=== PATIENT | male | born 1950 | race Caucasian/White ===

== ENCOUNTER 2019-10-30 14:16 | Outpatient (CLI) | payer OTHER, SELFPAY ==
--- NOTE | 2019-10-30 14:27 | MR_ITS ---
WS: [id number] MRI LEFT SHOULDER NONCONTRAST TECHNIQUE: Sagittal T2, coronal T1, T2 and proton density imaging. Axial gradient PDE imaging. CLINICAL INFORMATION: STRAIN OF LEFT SHOULDER, INITIAL ENCOUNTER COMPARISON: None. 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 Subacromial sp urring. Moderate edema at the AC joint. Partial intrasubstance tear involving the supraspinatus at th e musculotendinous junction with T2 hyperintensity. Additional small insertional tear of the supraspi natus insertion. Infraspinatus is intact. Normal teres minor. Partial intrasubstance tear with diffuse edema involving the subscapularis tendon. Normal biceps tend on in the bicipital groove. Biceps labral anchor appears intact. Small joint effusion. Small SLAP tea r involving the anterior superior glenoid labrum. MR/MR shoulder LT wo con* [id number] IMPRESSION: 1. Partial intrasubstance tear involving the supraspinatus at the muscular ten dinous junction with small insertional tear distally. 2. Partial intrasubstance Tear with edema involving the subscapularis. 3. Suggestion of a small SLAP tear involving the anterosuperior glenoid labrum . 4. Shoulder joint effusion with edema involving the rotator cuff. 5. Moderate degenerative arthritis at the AC joint
== END 2019-10-30 14:17 | disposition home or self-care (01) ==
LOC: RADWPI 14:21
PROVIDERS: Family Provider Internal Medicine; PCP Internal Medicine; Visit Provider Orthopaedic Surgery
DX: S46.912A Strain of unspecified muscle, fascia and tendon at shoulder and upper arm level, left arm, initial encounter (principal); M75.112 Incomplete rotator cuff tear or rupture of left shoulder, not specified as traumatic; M25.412 Effusion, left shoulder; M19.012 Primary osteoarthritis, left shoulder; X58.XXXA Exposure to other specified factors, initial encounter
CPT/HCPCS: 73221

== ENCOUNTER 2019-11-12 06:00 | Outpatient (RCR) | payer OTHER, SELFPAY | END 2019-11-27 23:59 | disposition home or self-care (01) | LOC: APT 06:00 | PROVIDERS: Family Provider Internal Medicine; PCP Internal Medicine; Referring Provider Orthopaedic Surgery; Visit Provider Orthopaedic Surgery | DX: M67.814 Other specified disorders of tendon, left shoulder (principal) | CPT/HCPCS: 97110; 97161 ==

== ENCOUNTER 2019-11-25 12:15 | Outpatient (CLI) | payer OTHER, SELFPAY ==
--- NOTE | 2019-11-25 16:36 | ONCRAD EPV_ITS ---
Radiation Oncology Established Patient Visit Patient: Avtar MR#: [id number] : 1950> Age: 69> Sex: Male> Dictated by: Dr. Chavo Costa Date of Service: 11/25/2019 Referring Physician(s) : Dr. Darrell Frank Diagnosis: C61 - Malignant neoplasm of prostate, Diagnosed 09/12/2018 (Active) Stage X, T2a, N0, M0 Radiotherapy to Date: Course: Prostate Treatment Site: [id number] Ref. ID: [id number] Energy: 6X Dose/Fx (cGy): 200 #Fx: 27 / 27 Dose Correction (cGy): 0 Total Dose (cGy): 5,400 Start Date: 12/01/2018 End Date: 01/12/2019 Elapsed Days: 42 Course: Prostate Treatment Site: PTV80 Ref. ID: [id number] Energy: 6X Dose/Fx (cGy): 200 #Fx: 13 / 13 Dose Correction (cGy): 0 Total Dose (cGy): 2,600 Start Date: 01/13/2019 End Date: 01/29/2019 Elapsed Days: 16 Chief Complaint / History of Present Illness: The patient is a 68 year old gentleman with a recently diagnosed T2a, Nx, Mx adenocarcinoma of the prostate Jhonathan score 3+4, PSA 7.4, favorable intermediate risk disease. He is s/p definitive RT to 80Gy completed on 01/29/2018. The patient is doing well with no complaints. Specifically he denies dysuria, urinary urgency, frequency, incontinence, nocturia or hematuria. He denies diarrhea, rectal irritation or bleeding. His most recent PSA was 1.31 on 06/04/2019 and 1.09 on 11/17/2019. Current Medications: Allopurinol, amiodarone HCl, cholecalciferol, cyclobenzaprine HCl, cymbalta, dilTIAZem HCl, flomax, lisinopril, melatonin, oxycodone-Acetaminophen, pregabalin, rOPINIRole HCl, sulfaSALAzine, xarelto. Allergies: Beta Adrenergic Blockers and Pravastatin Sodium. Current Complaints / Review of Systems: Constitutional - Complains of moderate fatigue. Denies lack of appetite, fever, night sweats and change in weight. Eyes - Complains of blurred vision in both eyes. ENMT - Complains of mouth dryness related to medications and tinnitus occasionally. Denies dysphagia, ear pain, stomatitis and altered taste. Neck - Complains of neck pain. Integumentary - Denies rash. Cardiovascular - Complains of infrequent arrhythmias which he has A-Flb. Denies chest pain. Respiratory - Complains of wheezing occasionally. Denies cough and dyspnea. Gastrointestinal - Denies abdominal pain, constipation, diarrhea, heartburn / dyspepsia, hemorrhoids, melena / GI bleeding, nausea and vomiting. Genitourinary (M) - Complains of nocturia gets up about 1 to 2 times per night. Denies dysuria, frequency and urgency. Musculoskeletal - Complains of arthritis which he was diagnosed about 6 months ago with Rheumatoid. Complains of bone pain. Complains of joint pain knees. Complains of generalized muscle weakness. Neurologic - Complains of frequent dizziness which happens with turning too quickly. Denies headaches. Endocrine - Denies diabetes and thyroid disease. Hematologic/Lymphatic - Denies tender or enlarged lymph nodes.. Vital Signs: Performed on 11/25/2019 1:18 PM BMI - 21.917 kg/m2, Height - 72.00 in, Weight - 161.6 lbs, Temperature - 97.1 f, Pulse - 85, Respiration - 18, O2 Sat - 96 %, Pain - 7 and BP - 150/ 73 mm(hg)(high/). Physical Exam: General: Alert and oriented x 3. No acute distress. HEENT: Normocephalic, atraumatic. Extraocular Movements Intact: Pupils Equal, Round, Reactive to Light and Accommodation: Sclerae anicteric. Oral cavity is clear without lesions, masses or ulcers. NECK: Supple without supraclavicular or jugular lymphadenopathy. LUNGS: Clear to auscultation bilaterally without rales, rhonchi or wheeze. HEART: Regular rate and rhythm, normal S1 and S2 without murmur, gallop or rub. BREASTS: There is no mass/nodule palpated of the right breast. No skin change, nipple discharge or retraction. The surgical incision has healed up well with no signs of bleeding or infection. No enlarged lymph nodes in the axilla. Exam of the contralateral breast is unremarkable. MUSCULOSKELETAL: No tenderness or percussion pain over the axial skeleton, scapulae or pelvis. ABDOMEN: Soft, nontender, nondistended without masses or organomegaly. Bowell sounds are present. EXTREMITIES: No peripheral edema is identified. Limited motor and sensory examination are grossly intact and symmetric bilaterally. NEUROLOGIC: Cranial nerves II ???XII are grossly intact. Normal sensation, strength 5/5 in all extremities, normal gait, no ataxia. Performance Status: 1 - No physically strenuous activity, but ambulatory and able to carry out light or sedentary work (e.g. office work, light house work). (ECOG) Lab: None pending. Pathology: Primary, c61 - malignant neoplasm of prostate, Diagnosed 09/12/2018 (active) stage x, t2a, n0, m0. Imaging: See HPI Impression/plan: There is no clinical evidence of recurrent prostate cancer or late radiation toxicities. We will check his PSA in 4 months. He will follow up with us afterwards. Signed by: 11/25/2019 4:35:41 PM <<Signature on File>> CPT Code: CPT Code: Signed By: Dr. Chavo Costa, 11/25/2019 4:35:42 PM <<Signature on File>>
== END 2019-11-25 12:16 | disposition home or self-care (01) ==
LOC: ONCMED 12:18
PROVIDERS: Family Provider Internal Medicine; PCP Internal Medicine; Visit Provider Radiology Radiation Oncology
DX: C61 Malignant neoplasm of prostate (principal); M06.9 Rheumatoid arthritis, unspecified; Z92.3 Personal history of irradiation; Z79.891 Long term (current) use of opiate analgesic
CPT/HCPCS: 99213

== ENCOUNTER 2019-11-28 06:00 | Outpatient (RCR) | payer OTHER, SELFPAY | END 2019-12-26 23:59 | disposition home or self-care (01) | LOC: APT 06:00 | PROVIDERS: Family Provider Internal Medicine; PCP Internal Medicine; Referring Provider Orthopaedic Surgery; Visit Provider Orthopaedic Surgery | DX: M77.9 Enthesopathy, unspecified (principal) | CPT/HCPCS: 97110; 97530 ==

== ENCOUNTER → 2020-01-14 10:42 | Outpatient (BNVA) | payer OTHER, SELFPAY | PROVIDERS: Family Provider Internal Medicine; PCP Internal Medicine; Visit Provider Internal Medicine Rheumatology | DX: M06.09 Rheumatoid arthritis without rheumatoid factor, multiple sites (principal); Z79.899 Other long term (current) drug therapy | CPT/HCPCS: 36415; 80076; 82565; 85651; 86140 ==

== ENCOUNTER → 2020-01-14 10:50 | Outpatient (BNVA) | payer OTHER, SELFPAY | PROVIDERS: Family Provider Internal Medicine; PCP Internal Medicine; Visit Provider Internal Medicine Rheumatology | DX: M06.09 Rheumatoid arthritis without rheumatoid factor, multiple sites (principal); Z79.899 Other long term (current) drug therapy | CPT/HCPCS: 85025 ==

== ENCOUNTER → 2020-03-23 08:36 | Outpatient (BNVA) | payer MEDICARE, OTHER, SELFPAY | PROVIDERS: Family Provider Internal Medicine; PCP Internal Medicine; Visit Provider Urology | DX: R31.21 Asymptomatic microscopic hematuria (principal); C61 Malignant neoplasm of prostate | CPT/HCPCS: 81001 ==

== ENCOUNTER 2020-06-17 08:07 | Outpatient (CLI) | payer OTHER, SELFPAY ==
--- NOTE | 2020-06-17 08:39 | USCV_ITS ---
Patrick Mendes Age: 70 Gender: M : 1950 Exam Date: 06/17/2020 08:33 Ordering Phys: Moiz Carrillo M.D ([email or web address]) Technologist: Julissa Hernandez Exam Location: [facility] [place] Indication: CAROTID STENOSIS Risk Factors: Previous Vascular Surgery: None Right Brachial BP: / Left Brachial BP: / Right Left Velocity (cm/s) Spectral Plaque Velocity (cm/s) Spectral Plaque Syst/Diast Broadening Syst/Diast Broadening 49.90/ 14.30 Prox CCA 53.90 / 12.50 49.20/ 13.50 Mid CCA 53.90 / 14.40 44.70/ 12.70 Distal CCA 53.30 / 13.10 73.35/ 28.75 Prox ICA 38.20 / 16.20 73.90/ 26.30 Mid ICA 55.20 / 16.50 36.10/ 16.40 Distal ICA 73.30 / 30.60 47.70 ECA 38.50 1.50 ICA/CCA 1.36 Antegrade Vertebral Antegrade 42.40/ 13.00 cm/s 37.70/ 11.90 cm/s Tri Subclavian Tri 123.0 87.70 0 FINDINGS Comparison:. /04/15. No significant elevation of systolic or diastolic velocities. Mild turbulence with scattered calcified plaque, bilateral. No progression of stenosis . CONCLUSIONS Bilateral ICA stenosis less than 50%. No interval change in stenosis since prior exam. Dr. Lauryn Reyes DO (Electronically Signed) Final Date: 17 June 2020 13:10 S
--- NOTE | 2020-06-17 08:39 | USCV_ITS ---
Patrick Mendes Age: 70 Gender: M : 1950 Exam Date: 06/17/2020 08:57 Ordering Phys: Moiz Carrillo M.D ([email or web address]) Technologist: Julissa Hernandez [place] [facility] [place]: AAA HISTORY: Diameter (cm) AP x Transverse x Length Velocity (cm/s) Waveform Prox Aorta: 2.16 x 2.26 x 29.50 Triphasic Mid Aorta: 2.03 x 2.49 x 29.50 Triphasic Distal Aorta: 3.45 x 3.77 x 19.60 Triphasic Right Iliac Prox: 0.98 x 1.01 x 89.50 Triphasic Left Iliac Prox: 1.31 x 1.24 x 101.80 Triphasic Stent Prox Landing x x Aneurysmal Sac Max x x Lt Lat Sac Dim Rt Lat Sac Dim Stent Dist Landing x x Right Iliac Stent x x Left Iliac Stent x x Right Renal Art Left Renal Art FINDINGS: Comparison:. 01/06/19. The abdominal aortic aneurysm involves the infrarenal aorta. Maximum diameter of 3.8cm, increased from 3.2 cm on 01/06/19. Normal waveforms and mild atherosclerosis iliac arteries. CONCLUSIONS AAA with maximum diameter of 3.8 cm. Mild increase in size from3.[address] Lauryn Reyes DO (Electronically Signed) Final Date: 17 June 2020 13:06 S
== END 2020-06-17 08:08 | disposition home or self-care (01) ==
LOC: RAD 08:08
PROVIDERS: PCP Internal Medicine; Visit Provider Internal Medicine Cardiovascular Disease
DX: I71.4 Abdominal aortic aneurysm, without rupture (principal); I65.23 Occlusion and stenosis of bilateral carotid arteries
CPT/HCPCS: 76706; 93880

== ENCOUNTER → 2020-09-06 08:43 | Outpatient (BNVA) | payer OTHER, SELFPAY | PROVIDERS: PCP Family Medicine; Referring Provider Family Medicine; Visit Provider Anesthesiology Pain Medicine | DX: Z79.899 Other long term (current) drug therapy (principal); M47.816 Spondylosis without myelopathy or radiculopathy, lumbar region; M54.16 Radiculopathy, lumbar region; M96.1 Postlaminectomy syndrome, not elsewhere classified; M54.9 Dorsalgia, unspecified; F17.210 Nicotine dependence, cigarettes, uncomplicated; Z79.891 Long term (current) use of opiate analgesic | CPT/HCPCS: 36415; 80076; 82565; 85025; 85651; 86140; 99205 ==

== ENCOUNTER → 2020-09-13 14:39 | Outpatient (BNVA) | payer OTHER, SELFPAY | PROVIDERS: PCP Family Medicine; Visit Provider Internal Medicine Rheumatology | DX: M05.79 Rheumatoid arthritis with rheumatoid factor of multiple sites without organ or systems involvement (principal); R76.8 Other specified abnormal immunological findings in serum; Z79.899 Other long term (current) drug therapy; Z79.52 Long term (current) use of systemic steroids; C61 Malignant neoplasm of prostate; I48.91 Unspecified atrial fibrillation; Z79.01 Long term (current) use of anticoagulants; F17.210 Nicotine dependence, cigarettes, uncomplicated | CPT/HCPCS: 99214 ==

== ENCOUNTER → 2020-10-04 08:57 | Outpatient (BNVA) | payer OTHER, SELFPAY | PROVIDERS: PCP Family Medicine; Visit Provider Anesthesiology Pain Medicine | DX: M54.9 Dorsalgia, unspecified (principal); M96.1 Postlaminectomy syndrome, not elsewhere classified; M54.16 Radiculopathy, lumbar region; M47.816 Spondylosis without myelopathy or radiculopathy, lumbar region | CPT/HCPCS: 99214 ==

== ENCOUNTER → 2020-11-01 08:42 | Outpatient (BNVA) | payer OTHER, SELFPAY | PROVIDERS: PCP Family Medicine; Visit Provider Anesthesiology Pain Medicine | DX: M47.816 Spondylosis without myelopathy or radiculopathy, lumbar region (principal); M54.16 Radiculopathy, lumbar region; M96.1 Postlaminectomy syndrome, not elsewhere classified; M54.9 Dorsalgia, unspecified; I48.91 Unspecified atrial fibrillation; Z79.891 Long term (current) use of opiate analgesic | CPT/HCPCS: 99213; 99214 ==

== ENCOUNTER → 2020-11-29 09:08 | Outpatient (BNVA) | payer OTHER, SELFPAY | PROVIDERS: PCP Family Medicine; Visit Provider Anesthesiology Pain Medicine | DX: M47.816 Spondylosis without myelopathy or radiculopathy, lumbar region (principal); M54.16 Radiculopathy, lumbar region; M96.1 Postlaminectomy syndrome, not elsewhere classified; M54.9 Dorsalgia, unspecified; F17.210 Nicotine dependence, cigarettes, uncomplicated; Z79.891 Long term (current) use of opiate analgesic | CPT/HCPCS: 99214 ==

== ENCOUNTER → 2020-12-26 12:43 | Outpatient (BNVA) | payer OTHER, SELFPAY | PROVIDERS: PCP Family Medicine; Visit Provider Anesthesiology Pain Medicine | DX: M53.3 Sacrococcygeal disorders, not elsewhere classified (principal); M47.816 Spondylosis without myelopathy or radiculopathy, lumbar region; M54.9 Dorsalgia, unspecified; F17.210 Nicotine dependence, cigarettes, uncomplicated; Z79.891 Long term (current) use of opiate analgesic | CPT/HCPCS: 77003; G0260; J1030; J3490 ==

== ENCOUNTER → 2021-01-05 10:14 | Outpatient (BNVA) | payer OTHER, SELFPAY | PROVIDERS: PCP Family Medicine; Visit Provider Anesthesiology Pain Medicine | DX: M54.16 Radiculopathy, lumbar region (principal); M96.1 Postlaminectomy syndrome, not elsewhere classified; M54.9 Dorsalgia, unspecified; M47.816 Spondylosis without myelopathy or radiculopathy, lumbar region; F17.210 Nicotine dependence, cigarettes, uncomplicated; Z79.891 Long term (current) use of opiate analgesic | CPT/HCPCS: 99214 ==

== ENCOUNTER 2021-01-17 06:47 | Outpatient (CLI) | payer OTHER, SELFPAY ==
--- NOTE | 2021-01-17 07:15 | USCV_ITS ---
Patrick Mendes Age: 70 Gender: M : 1950 Exam Date: 01/17/2021 07:04 Ordering Phys: Moiz Carrillo M.D ([email or web address]) Technologist: Isabelle Mueller [place] [facility] [place]ication: KNOWN AAA HISTORY: Diameter (cm) AP x Transverse x Length Velocity (cm/s) Waveform Prox Aorta: 2.27 x 2.66 x 63.60 Mid Aorta: 1.73 x 1.88 x 74.40 Distal Aorta: 3.32 x 3.39 x 5.32 48.80 Right Iliac Prox: 1.00 x 1.04 x 131.90 Left Iliac Prox: 1.43 x 1.31 x 122.00 Stent Prox Landing x x Aneurysmal Sac Max x x Lt Lat Sac Dim Rt Lat Sac Dim Stent Dist Landing x x Right Iliac Stent x x Left Iliac Stent x x Right Renal Art Left Renal Art FINDINGS: Mild diffuse plaques in the abdominal aorta. Fusiform dilatation of the infrarenal aorta measuring 3.32 x 3.39 cm Normal Doppler flow velocities CONCLUSIONS 1. Fusiform aneurysmal dilatation of the infrarenal aorta measuring 3.32 x 3.39 cm. 2. Ectatic left proximal common iliac artery measuring 1.43 x 1.31 cm 3. Mild diffuse plaques in the abdominal aorta with no evidence of stenosis/dissection. Compared to the study from 06/17/2020, there may not be a significant change Dr Corey Castaneda MD [facility] (Electronically Signed) Final Date: 18 January 2021 08:54 S
== END 2021-01-17 06:48 | disposition home or self-care (01) ==
LOC: US 06:48
PROVIDERS: PCP Family Medicine; Visit Provider Internal Medicine
DX: I71.4 Abdominal aortic aneurysm, without rupture (principal)
CPT/HCPCS: 76706

== ENCOUNTER 2021-02-01 13:32 | Observation (INO) | payer OTHER, MEDICARE, SELFPAY ==
[2021-02-01] VITALS (23 sets, daily range): BP systolic 103–129; BP diastolic 61–88; PULSE 53–151; RESP 11–27; TEMP 37.2; O2SAT 91–96; BMI 23.0
--- NOTE | 2021-02-01 13:38 | XR_ITS ---
WS: [id number] Portable AP upright chest, 02/01/2021 Clinical Data: Cough Comparison: Portable chest, 05/01/2019. Findings: No nodules, masses or effusions are seen. The heart is normal. The pulmonary vascularity is not increased. No pneumonia or pneumothorax is seen. The aortic arch and descending aorta show calci fication and tortuosity. There are monitor leads on the chest wall. XR/XR chest 1V portable [id number] Impression: Atherosclerosis.
--- NOTE | 2021-02-01 13:38 | ECG_ITS ---
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1950 Requested By: Nathan Woods Order Number: [id number] Laila MD: MIR EMANUEL Measurements Intervals [place] Rate: 150 P: MD: QRS: -14 QRSD: 124 T: 268 QT: 309 QTc: 489 Interpretive Statements ATRIAL FLUTTER WITH RAPID VENTRICULAR RESPONSE RIGHT BUNDLE BRANCH BLOCK [120+ ms QRS DURATION, UPRIGHT V1, 40+ ms S IN I/aVL/V4/V5/V6] MODERATE inferolateral T wave inversion cannot rule out ischemia Compared to ECG 05/01/2019 16:48:08 Right bundle-branch block now present T-wave abnormality now present Possible ischemia now present Sinus rhythm no longer present Electronically Signed On 02-01-2021 20:21:04 CDT by MIR EMANUEL [email or web address] [email or web address].[place] [email or web address]/store/[id number] f
--- NOTE | 2021-02-01 13:39 | W.ED.ARRPALP ---
HPI - Arrhythmia/Palpitations General: Chief Complaint: Arrhythmia/Palpitations Stated Complaint: high heart rate Time Seen by Provider: 02/01/21 13:34 Source: patient, family and RN notes reviewed Mode of arrival: wheelchair History of Present Illness: HPI narrative: This patient is a 71-year-old male who presents to the emergency department with complaint of high heart rate. Patient does have a history of SVT A. fib and has to have medications and occasionally has to be cardioverted due to low blood pressures when he has tachycardia. Patient apparently went to an outpatient office visit with his and decided to get checked out because he had some dizziness on arrival. Dr. Martinez cardiology did an evaluation and found that the patient was in A. fib with RVR heart rate of greater than 150 requested the patient come to the emergency department. Patient does describe lightheaded headedness when he stands up. Patient does currently take Cardizem 240 mg daily for this issue. Blood pressure stable at this time at 119/81 Dr. Martinez request that we give amiodarone to the patient. Will do medical evaluation treat as needed MD complaint: rapid heart beat, heart racing , palpitations and atrial fibrillation Onset (ago): minute(s) Duration: constant Severity: moderate Associated symptoms: Deny anxiety, nausea or vomiting Review of Systems General: Reports: 10 or more systems reviewed and unremarkable except in HPI and below Const: Denies: fever(s), chills, body aches or fatigue Eyes: Denies: change in vision or blurry vision ENMT: Denies: throat pain, hoarseness or mouth pain Card: Reports: palpitations, irregular heart rhythm and lightheadedness; Denies: chest pain, edema or swelling of feet/ankles Resp: Denies: dyspnea, productive cough, non-productive cough, wheezing or pain on inspiration GI: Denies: abdominal pain, nausea or vomiting : Denies: flank pain, dysuria, urinary frequency, urinary urgency or urinary hesitancy Musc: Denies: neck pain, back pain, extremity pain, extremity swelling, joint pain, joint swelling, joint redness, joint warmth or limited range of motion Skin/Breast: Denies: rash, pruritus, erythema or skin tenderness Neuro: Denies: headache(s), numbness in extremities or weakness in extremities Psych: Denies: anxiety or depression PFSH ED PFSH: Medical History AAA (abdominal aortic aneurysm) Atrial fibrillation Dyslipidemia High risk medication use Hypertension Immunization counseling Positive CHANDRAKANT (antinuclear antibody) Prostate cancer Hx of Seropositive rheumatoid arthritis of multiple sites Surgical History Hx of prostate biopsy Family History Father CAD (coronary artery disease) Other Cancer Social History Smoking and tobacco status: current every day smoker cigarettes Packs smoked per day: 1 Alcohol intake: former Adopted: No Caregiver/support person: No Lives independently: No Household members: spouse Housing: House Marital status: service: Yes status: Retired branch: [employer] Current occupational status: retired History of recent travel: No Current gender identity: Male Physical Exam Const: COMMON NORMALS: no acute distress, average body habitus, patient oriented x3, no limitations, healthy appearing, alert and well nourished HENMT: COMMON NORMALS: normocephalic, atraumatic, hearing grossly normal bilaterally, external ears normal, EAC's normal, TM's normal bilaterally, Normal external nose present, Normal nasal mucous membranes and turbinates present, moist oral mucous membranes, oropharynx normal, dentition normal and gingiva normal HEAD & SCALP: normocephalic and atraumatic NOSE: Normal external nose present and Normal nasal mucous membranes and turbinates present EXTERNAL EAR: Yes external ears normal EXTERNAL AUDITORY CANAL: EAC's normal TYMPANIC MEMBRANE: TM's normal bilaterally Neck/C-Spine: COMMON NORMALS: full ROM, no lymphadenopathy, supple, no meningeal signs, no JVD, Thyroid normal and No carotid bruits THYROID: Thyroid normal Chest: COMMONS NORMALS: normal inspection of the chest, normal palpation of entire chest wall, normal inspection of the breasts and normal palpation of the breasts Breast/axilla inspection: Yes normal inspection of the breasts BREAST/AXILLA PALPATION: Yes normal palpation of the breasts Resp: COMMON NORMALS: normal respiratory effort, No retractions, No use of accessory muscles, clear to auscultation bilaterally and percussion normal AUSCULTATION: clear to auscultation bilaterally PERCUSSION: percussion normal Cardio: COMMON NORMALS: no JVD, S1 normal heart sound present, S2 normal heart sound present, No gallops present (Cardio), No clicks present (Cardio), No murmurs present (Cardio), No rub (Cardio) and Peripheral pulses 2+ throughout RATE: tachycardic RHYTHM: abnormal rhythm irregularly irregular HEART SOUNDS: S1 normal heart sound present and S2 normal heart sound present PERIPHERAL PULSES: Peripheral pulses 2+ throughout GI: COMMON NORMALS: Normal to inspection, nondistended, normoactive bowel sounds present, Soft to palpation, non-tender, No hepatosplenomegaly present, no masses and no bruits PALPATION: Yes Soft to palpation and Yes No hepatosplenomegaly present : COMMON NORMALS: Yes no CVA tenderness BLADDER/KIDNEY EXAM: Yes no CVA tenderness Back/Pelvis: COMMON NORMALS: no CVA tenderness, thoracic and lumbar spine normal to inspection, no thoracic nor lumbar tenderness, thoraco-lumbar ROM normal and straight leg raise negative bilaterally Extremity: COMMON NORMALS: normal to inspection, full ROM, capillary refill normal, no joint enlargement, no clubbing, cyanosis or edema, no calf tenderness and no pedal edema Neuro: COMMON NORMALS: patient oriented x3 SENSORIUM/ORIENTATION: Yes alert MENINGEAL SIGNS: Yes no meningeal signs Course Reevaluation(s): Reevaluation #1: Patient is much improved after IV push of amiodarone. Heart rate has improved and is down to 92 at 114. Patient blood pressure stable 125/79. Patient started on amiodarone drip by recommendation of Dr. Carrillo cardiology. Patient will be admitted to the hospitalist service. Time: 14:37 Consultations: Consultation #1: I discussed at length with Dr. Camara hospitalist. He agrees with admission to the patient to the hospital he will see patient upon arrival to the ICU. Time: 14:37 Vital Signs: Vital signs: Vital Signs Temperature 98.9 F 02/01/21 13:34 Pulse Rate 151 H 02/01/21 13:34 Respiratory Rate 20 H 02/01/21 13:34 Blood Pressure 119/81 02/01/21 13:34 Pulse Oximetry 96 02/01/21 13:34 MDM - Arrhythmia/Palpitations MDM Narrative: Medical decision making narrative: This patient is a 71-year-old male who presents to the emergency department with complaint of high heart rate. Patient does have a history of SVT A. fib and has to have medications and occasionally has to be cardioverted due to low blood pressures when he has tachycardia. Patient apparently went to an outpatient office visit with his and decided to get checked out because he had some dizziness on arrival. Dr. aMrtinez cardiology did an evaluation and found that the patient was in A. fib with RVR heart rate of greater than 150 requested the patient come to the emergency department. Patient does describe lightheaded headedness when he stands up. Patient does currently take Cardizem 240 mg daily for this issue. Blood pressure stable at this time at 119/81 Dr. Martinez request that we give amiodarone to the patient. Will do medical evaluation treat as needed Differential Diagnosis: Differential diagnosis arrhythmia/palpitations: Likely palpitations, sinus tachycardia, artial fibrillation, artial flutter, supraventricular tachycardia and ventricular tachycardia Medical Records: Attestation: I reviewed the patient's medical records. Lab Data: Attestation: I reviewed the patient's lab results. Labs: Lab Results 02/01/21 02/01/21 02/01/21 Range/Units 13:38 13:38 13:38 WBC 11.8 H (4.0-10.0) 10^3/ uL RBC 5.35 H (4.1-5.3) 10^6/u L Hgb 15.8 (11.7-16.6) g/dL Hct 49.0 (42.0-52.0) % MCV 91.6 (80-94) fL MCH 29.5 (28.0-34.0) pg MCHC 32.2 (30.0-36.0) g/dL RDW 16.4 H (12.1-15.1) % Plt Count 319 (130-400) 10^3/c mm MPV 8.9 (7.4-10.4) fL Neut % (Auto) 80.3 % Lymph % (Auto) 12.5 % Hopkins % (Auto) 4.8 % Eos % (Auto) 0.2 % Baso % (Auto) 0.6 % Neut # (Auto) 9.48 H (1.8-7.7) 10^3/u L Lymph # (Auto) 1.5 (0.8-4.8) 10^3/u L Hopkins # (Auto) 0.6 (0.2-0.9) 10^3/u L Eos # (Auto) 0.0 (0.0-0.8) 10^3/u L Baso # (Auto) 0.1 (0.0-0.1) 10^3/u L Nucleated RBC % (a uto) 0 % Nucleated RBCs # 0.0 /100WBC Sodium 139 (136-145) mmol/L Potassium 4.8 (3.5-5.1) mmol/L Chloride 102 (98-107) mmol/L Carbon Dioxide 26 (22-29) mmol/L Anion Gap 15.8 (5-19) BUN 22 (8-23) mg/dL Creatinine 1.1 (0.7-1.2) mg/dL Glucose 99 (65-115) mg/dL Calculated Osmolal ity 291 (285-295) mOsm/k g Calcium 9.8 (8.5-10.5) mg/dL Total Bilirubin 0.4 (0.15-1.2) mg/dL AST 25 (0-40) U/L ALT 22 (0-41) U/L Alkaline Phosphata se 76 (40-130) IU/L Troponin T Baselin e 27 H (0-15) ng/L Total Protein 7.2 (6.6-8.7) g/dL Albumin 4.6 (3.5-5.2) g/dL Globulin 2.6 (1.3-4.6) g/dL Imaging Data^: CXR: Attestation: I personally reviewed and interpreted this imaging study as follows: My impression: No acute findings EKG Data^: EKG 1: Attestation: I personally reviewed and interpreted this EKG as follows: EKG interpretation date: 02/01/21 EKG interpretation time: 13:38 Prior EKG tracings: available for review Interpretation: Atrial fibrillation/flutter with rapid ventricular response. Right bundle branch block. Moderate ST abnormalities. Heart rate 150. Other EKG comments: Chest X-Ray 02/01/21 13:38 Impression: Atherosclerosis. Critical Care Time Critical Care Time: Critical Care Time: Yes Total Critical Care Time: 90 Attestation: Patient sent from the outpatient cardiac clinic. In acute atrial fib with RVR low blood pressure. Patient had been given amiodarone via IV push and then placed on a drip to control rate. Patient be admitted to the hospital. Discharge Plan Discharge Patient Disposition: Admitted As Inpatient Clinical Impression: Atrial fibrillation with RVR, Palpitations Condition: Stable Prescriptions: No Action tamsulosin [Flomax] 0.4 mg capsule 0.8 mg PO QPM RF: 0 Xarelto 20 mg tablet 20 mg PO DAILY@1730 RF: 0 ropinirole 1 mg tablet 1 mg PO BEDTIME RF: 0 melatonin 10 mg capsule 10 mg PO BEDTIME RF: 0 allopurinol 100 mg tablet 100 mg PO DAILY RF: 0 folic acid 1 mg tablet 1 mg PO DAILY Qty: 90 RF: 3 prednisone 5 mg tablet See Rx Instructions PO DAILY Qty: 90 RF: 3 Narcan 4 mg/actuation spray,non-aerosol 4 mg intranasal Q3M PRN (Reason: overdose) RF: 0 tizanidine 2 mg tablet 2 mg PO BID PRN (Reason: muscle spasticity) Qty: 60 RF: 0 duloxetine 30 mg capsule,delayed release(DR/EC) 30 mg PO DAILY RF: 0 potassium gluconate 595 mg (99 mg) tablet 595 mg PO . 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
[2021-02-01 13:49] LABS: Basophils # 0.1 10^3/uL (0.0-0.1); Basophils % 0.6 %; Eosinophils % 0.2 %; Hemoglobin 15.8 g/dL (11.7-16.6); Lymphocytes # 1.5 10^3/uL (0.8-4.8); Lymphocytes % 12.5 %; Mean Corpuscular HGB Conc 32.2 g/dL (30.0-36.0); Mean Corpuscular Hemoglobin 29.5 pg (28.0-34.0); Mean Corpuscular Volume 91.6 fL (80-94); Mean Platelet Volume 8.9 fL (7.4-10.4); Monocytes # 0.6 10^3/uL (0.2-0.9); Monocytes % 4.8 %; Neutrophils # 9.48 10^3/uL (1.8-7.7); Neutrophils % 80.3 %; Nucleated Red Blood Cells % 0 %; Platelet Count 319 10^3/cmm (130-400); Red Blood Count 5.35 10^6/uL (4.1-5.3); Red Cell Distribution Width 16.4 % (12.1-15.1); White Blood Count 11.8 10^3/uL (4.0-10.0)
[2021-02-01 14:16] LABS: Troponin(5th) Baseline 27 ng/L (0-15)
[2021-02-01 14:26] LABS: Alanine Aminotransferase 22 U/L (0-41); Albumin Level 4.6 g/dL (3.5-5.2); Alkaline Phosphatase 76 IU/L (40-130); Anion Gap 15.8 (5-19); Aspartate Amino Transferase 25 U/L (0-40); Blood Urea Nitrogen 22 mg/dL (8-23); Calcium 9.8 mg/dL (8.5-10.5); Carbon Dioxide 26 mmol/L (22-29); Chloride 102 mmol/L (98-107); Globulin 2.6 g/dL (1.3-4.6); Glomerular Filtration Rate 66.4 mL/min (90-130); Glucose 99 mg/dL (65-115); NT Pro B Type Natriuretic Pept 1287 pg/mL (0-125); Osmolality Calculated 291 mOsm/kg (285-295); Potassium 4.8 mmol/L (3.5-5.1); Sodium 139 mmol/L (136-145); Total Bilirubin 0.4 mg/dL (0.15-1.2); Total Protein 7.2 g/dL (6.6-8.7)
[2021-02-01] MEDS: sodium chloride 0.9% 1,000 ML 999 ML IV (14:36)
--- NOTE | 2021-02-01 14:42 | PC.NURSE ---
pt has chronic back pain unrelated to todays events
[2021-02-01 15:03] LABS: Magnesium 2.3 mg/dL (1.7-2.3)
--- NOTE | 2021-02-01 15:38 | ECG_ITS ---
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1950 Requested By: Nathan Woods Order Number: [id number] Reading MD: MIR EMANUEL Measurements Intervals [place] Rate: 77 P: NM: QRS: 2 QRSD: 92 T: 90 QT: 296 QTc: 336 Interpretive Statements ATRIAL FLUTTER/TACHYCARDIA INCOMPLETE RIGHT BUNDLE BRANCH BLOCK [90+ ms QRS DURATION, TERMINAL R IN V1/V2, 40+ ms S IN I/aVL/V4/V5/V6] MODERATE T-WAVE ABNORMALITY, CONSIDER LATERAL ISCHEMIA [-0.1+ mV T WAVE IN I/aVL/V5/V6] MODERATE T-WAVE ABNORMALITY, CONSIDER INFERIOR ISCHEMIA [-0.1+ mV T WAVE IN II/aVF] Compared to ECG 02/01/2021 13:38:08 Incomplete right bundle-branch block now present Right bundle-branch block no longer present T-wave abnormality still present Possible ischemia still present Electronically Signed On 02-01-2021 20:25:48 CDT by MIR EMANUEL [id number]
--- NOTE | 2021-02-01 15:57 | PM.HP ---
Providers/Chief Complaint Admitting Physician: Chase Camara MD Primary Care Provider: Meredith Evans MD Chief Complaint: high heart rate History of Present Illness Patrick Mendes is a 71 year old male with a past medical history of atrial fibrillation on Xarelto, history of hypertension, pulmonary hypertension, abdominal aortic aneurysm, COPD, history of smoking, history of prostate cancer treated with radiation therapy in remission, history of restless leg syndrome, history of rheumatoid arthritis, history of gout, who presents to [facility] due to complaints of chest palpitations. 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 fib/a flutter, he tells me that every year he has a exacerbation of his atrial fibrillation, he either is cardioverted, or they take care of it with medications Review of Systems Const: Denies: fever(s), chills, fatigue or malaise Eyes: Denies: change in vision or blurry vision ENMT: Denies: nasal congestion Card: Reports: palpitations and irregular heart rhythm; Denies: chest pain, edema, lightheadedness, syncope or dyspnea on exertion Resp: Denies: dyspnea, productive cough, non-productive cough or wheezing GI: Denies: abdominal pain, nausea, vomiting, hematemesis, diarrhea, constipation, hematochezia or melena : Denies: flank pain, difficulty urinating, dysuria or urinary frequency Musc: Denies: neck pain or back pain Skin/Breast: Denies: rash Neuro: Denies: headache(s), dizziness or vertigo Psych: Denies: anxiety or depression Endo: Denies: polyuria or polydipsia Medications/Allergies Home Medications Medication Instructions Recorded Confirmed Last Taken Type melatonin 10 mg capsule 10 mg PO BEDTIME 11/10/19 02/01/21 Unknown History rivaroxaban 20 mg tablet 20 mg PO DAILY@1730 11/10/19 02/01/21 01/31/21 History ropinirole 1 mg tablet 1 mg PO BEDTIME 11/10/19 02/01/21 Unknown History tamsulosin 0.4 mg capsule 0.8 mg PO QPM 11/10/19 02/01/21 01/31/21 History duloxetine 30 mg capsule,delayed 30 mg PO DAILY 03/23/20 02/01/21 Unknown History release lisinopril 20 mg tablet 20 mg PO DAILY #90 tab 08/12/20 02/01/21 Unknown Rx potassium gluconate 595 mg (99 mg) 595 mg PO . ON SAT,SAT,Sat09/06/20 02/01/21 01/30/21 History tablet allopurinol 100 mg tablet 100 mg PO DAILY tab 09/13/20 02/01/21 Unknown History diltiazem HCl 240 mg 120 mg PO QAM cap 09/13/20 02/01/21 02/01/21 08:00 History capsule,extended release 24 hr folic acid 1 mg tablet 1 mg PO DAILY #90 tab 09/13/20 02/01/21 Unknown Rx prednisone 5 mg tablet See Rx Instructions PO DAILY #90 09/13/20 02/01/21 02/01/21 08:00 Rx tab 15 mg naloxone 4 mg/actuation nasal spray 4 mg INTRANASAL Q3M PRN 11/01/20 02/01/21 Unknown History tizanidine 2 mg tablet 2 mg PO BID PRN #60 tab 11/29/20 02/01/21 02/01/21 08:00 Rx amitriptyline 25 mg tablet 25 mg PO DAILY #30 tab 01/05/21 02/01/21 Unknown Rx lidocaine 1 applic TOPICAL BID PRN 02/01/21 02/01/21 Unknown History methotrexate sodium 10 mg PO Q7D 02/01/21 02/01/21 01/28/21 History oxycodone-acetaminophen 0.5 tab PO QID PRN 02/01/21 02/01/21 02/01/21 08:00 History rosuvastatin 5 mg PO QPM 02/01/21 02/01/21 01/31/21 History Allergies Allergy/AdvReac Type Severity Reaction Status Date / Time sotalol [From Betapace] Allergy Intermediate ALGY-Rash Verified 02/01/21 14:31 PFSH Acute PFSH: Medical History AAA (abdominal aortic aneurysm) Atrial fibrillation Dyslipidemia High risk medication use Hypertension Immunization counseling Positive CHANDRAKANT (antinuclear antibody) Prostate cancer Hx of Seropositive rheumatoid arthritis of multiple sites Surgical History Hx of prostate biopsy Family History Father CAD (coronary artery disease) Other Cancer Social History Smoking and tobacco status: current every day smoker cigarettes Packs smoked per day: 1 Alcohol intake: former Adopted: No Caregiver/support person: No Lives independently: No Household members: spouse Housing: House Marital status: service: Yes status: Retired branch: [employer] Current occupational status: retired History of recent travel: No Current gender identity: Male Vitals/I&O/Wt Last Vital Signs Temp 98.9 F 02/01/21 13:34 Pulse 105 H 02/01/21 15:55 Resp 27 H 02/01/21 15:55 BP 114/80 02/01/21 15:55 Pulse Ox 91 02/01/21 15:55 02/01/21 02/01/21 02/01/21 06:59 14:59 22:59 Intake Total 103 / 103 Balance 103 / 103 Weight last 48 hrs Weight 77.111 kg Physical Exam Const: COMMON NORMALS: no acute distress and patient oriented x3 GENERAL APPEARANCE: cooperative and comfortable HENMT: COMMON NORMALS: normocephalic HEAD & SCALP: normocephalic Eye: COMMON NORMALS: Equal, round and reactive pupils present and EOMs intact bilaterally GENERAL EYE: appearance normal, both eyes and all related structures PUPIL: Yes Equal, round and reactive pupils present Neck/C-Spine: COMMON NORMALS: full ROM, no lymphadenopathy, no JVD and Thyroid normal THYROID: Thyroid normal Lymph: LYMPHATIC: no lymphadenopathy noted Resp: COMMON NORMALS: normal respiratory effort, No retractions, No use of accessory muscles and clear to auscultation bilaterally AUSCULTATION: clear to auscultation bilaterally Cardio: COMMON NORMALS: no JVD, regular rate, S1 normal heart sound present, S2 normal heart sound present, No gallops present (Cardio), No clicks present (Cardio) and No murmurs present (Cardio) RATE: tachycardic RHYTHM: abnormal rhythm HEART SOUNDS: S1 normal heart sound present and S2 normal heart sound present GI: COMMON NORMALS: Normal to inspection, nondistended, normoactive bowel sounds present, Soft to palpation, non-tender and No hepatosplenomegaly present PALPATION: Yes Soft to palpation and Yes No hepatosplenomegaly present Extremity: COMMON NORMALS: normal to inspection, full ROM and no pedal edema Neuro: COMMON NORMALS: patient oriented x3, CN's II-XII intact bilaterally, moves all extremities and no focal motor deficits Psych: COMMON NORMALS: mental status grossly normal, Normal thought process present and cooperative THOUGHT PROCESS: Normal thought process present Data : 02/01/21 13:38 02/01/21 13:38 A&P Assessment and plan (1) Atrial flutter with rapid ventricular response: -We will admit to [facility] -Check magnesium, TSH -Currently on Xarelto, compliant -Currently on amiodarone drip -Cardiology on consult -Full code -Xarelto for DVT prophylaxis -Cardiac diet Status: Acute (2) Seropositive rheumatoid arthritis of multiple sites: Status: Acute (3) Dyslipidemia: Status: Acute (4) Hypertension: Status: Acute (5) Prostate cancer: Status: Acute Attestations Medical Necessity Statement*: Patient requires hospitalization, outpatient with observation, atrial flutter with RVR Coding Level of Care Code Acute Bicycle Technician for [facility] Fwd Diagnoses Atrial flutter with rapid ventricular response I48.92 Seropositive rheumatoid arthritis of multiple sites M05.79 Dyslipidemia E78.5 Hypertension I10 Prostate cancer C61
[2021-02-01 16:16] LABS: Troponin 5 2HR 22.32 ng/L (0-15)
[2021-02-01 16:20] LABS: Troponin 5 2HR Delta -4.68 ABS# (0-10)
--- NOTE | 2021-02-01 17:01 | P.CONIM_ITS ---
Providers/Reason For Consult Consulting Physican/Specialty*: Dr. Coello, cardiology Reason for Consult*: Atrial flutter with rapid ventricle response Attending Physician: Chase Camara MD Primary Care Provider: Meredith Evans MD History of Present Illness History of Present Illness Patrick Mendes is a 71 year old male with past medical history of paroxysmal atrial fibrillation on Xarelto with h/o multiple cardioversions, previously on amiodarone that was stopped in 04/2019 after admission with dizziness/falls and elevated liver enzymes, hypertension, abdominal aortic aneurysm, dyslipidemia, benign prostatic hypertrophy, history of smoking and prostate cancer s/p radiation therapy as well as rheumatoid arthritis was sent to the ER from [facility] today. He previously used to follow-up with Dr. Vieira and today was seen by Dr. Carrillo. He complained of episodes of fluttering/palpitations, lightheadedness and shortness of breath for the last 2 days. EKG was performed which showed atrial flutter with heart rate of 157 bpm. Blood pressure in office was 96/78 mmHg. He was sent to ER for further evaluation. Patient heart rate at this time ranges from 90's at rest to 140's when he starts moving around and talking. He feels better than before but still has some butterflies in chest with fatigue. No leg swelling, orthopnea or PND. Review of Systems Const: Denies: fever(s), chills, fatigue or malaise Eyes: Denies: change in vision or blurry vision ENMT: Denies: nasal congestion Card: Reports: palpitations and irregular heart rhythm; Denies: chest pain, edema, lightheadedness, syncope or dyspnea on exertion Resp: Denies: dyspnea, productive cough, non-productive cough or wheezing GI: Denies: abdominal pain, nausea, vomiting, hematemesis, diarrhea, constipation, hematochezia or melena : Denies: flank pain, difficulty urinating, dysuria or urinary frequency Musc: Denies: neck pain or back pain Skin/Breast: Denies: rash Neuro: Denies: headache(s), dizziness or vertigo Psych: Denies: anxiety or depression Endo: Denies: polyuria or polydipsia Meds/Allergies Home Medications and Allergies Home Medications Medication Instructions Recorded Confirmed Last Taken Type melatonin 10 mg capsule 10 mg PO BEDTIME 11/10/19 02/01/21 Unknown History rivaroxaban 20 mg tablet 20 mg PO DAILY@1730 11/10/19 02/01/21 01/31/21 History ropinirole 1 mg tablet 1 mg PO BEDTIME 11/10/19 02/01/21 Unknown History tamsulosin 0.4 mg capsule 0.8 mg PO QPM 11/10/19 02/01/21 01/31/21 History duloxetine 30 mg capsule,delayed 30 mg PO DAILY 03/23/20 02/01/21 Unknown History release lisinopril 20 mg tablet 20 mg PO DAILY #90 tab 08/12/20 02/01/21 Unknown Rx potassium gluconate 595 mg (99 mg) 595 mg PO . ON MON,SAT,Sat09/06/20 02/01/21 01/30/21 History tablet allopurinol 100 mg tablet 100 mg PO DAILY tab 09/13/20 02/01/21 Unknown History diltiazem HCl 240 mg 120 mg PO QAM cap 09/13/20 02/01/21 02/01/21 08:00 History capsule,extended release 24 hr folic acid 1 mg tablet 1 mg PO DAILY #90 tab 09/13/20 02/01/21 Unknown Rx prednisone 5 mg tablet See Rx Instructions PO DAILY #90 09/13/20 02/01/21 02/01/21 08:00 Rx tab 15 mg naloxone 4 mg/actuation nasal spray 4 mg INTRANASAL Q3M PRN 11/01/20 02/01/21 Unknown History tizanidine 2 mg tablet 2 mg PO BID PRN #60 tab 11/29/20 02/01/21 02/01/21 08:00 Rx amitriptyline 25 mg tablet 25 mg PO DAILY #30 tab 01/05/21 02/01/21 Unknown Rx lidocaine 1 applic TOPICAL BID PRN 02/01/21 02/01/21 Unknown History methotrexate sodium 10 mg PO Q7D 02/01/21 02/01/21 01/28/21 History oxycodone-acetaminophen 0.5 tab PO QID PRN 02/01/21 02/01/21 02/01/21 08:00 History rosuvastatin 5 mg PO QPM 02/01/21 02/01/21 01/31/21 History Allergies Allergy/AdvReac Type Severity Reaction Status Date / Time sotalol [From Betapace] Allergy Intermediate ALGY-Rash Verified 02/01/21 14:31 Current Medications Current Medications Generic Name Dose Route Start Last Admin Trade Name Darlin PRN Reason Stop Dose Admin Amiodarone HCl 900 mg/ 518 mls @ 17.267 mls/hr 02/01/21 14:30 02/01/21 14:44 Dextrose/ IV Miscellaneous IV 0.5 mg/min Supplies CONT CT 17.3 mls/hr Administration 0.5 MG/MIN PFSH Acute PFSH: Medical History AAA (abdominal aortic aneurysm) Atrial fibrillation Dyslipidemia High risk medication use Hypertension Immunization counseling Positive CHANDRAKANT (antinuclear antibody) Prostate cancer Hx of Seropositive rheumatoid arthritis of multiple sites Surgical History Hx of prostate biopsy Family History Father CAD (coronary artery disease) Other Cancer Social History Smoking and tobacco status: current every day smoker cigarettes Packs smoked per day: 1 Alcohol intake: former Adopted: No Caregiver/support person: No Lives independently: No Household members: spouse Housing: House Marital status: service: Yes status: Retired branch: [employer] Current occupational status: retired History of recent travel: No Current gender identity: Male Vitals/I&O/Wt Last Vital Signs Temp 98.9 F 02/01/21 13:34 Pulse 105 H 02/01/21 15:55 Resp 27 H 02/01/21 15:55 BP 114/80 02/01/21 15:55 Pulse Ox 91 02/01/21 15:55 02/01/21 02/01/21 02/01/21 06:59 14:59 22:59 Intake Total 103 / 103 Balance 103 / 103 Weight last 48 hrs Weight 170 lb Physical Exam Narrative: EXAM NARRATIVE: GENERAL: Averagely built and averagely nourished in no acute distress HEENT: Pupils equal round reactive to light. No pallor or icterus. NECK: central trachea, No JVD. No carotid bruit. CARDIOVASCULAR SYSTEM: S1-S2 regular. No S3 or S4 present. No murmur rubs or gallops. RESPIRATORY SYSTEM: Chest clear to auscultation. No wheezes rhonchi or rubs heard. No use of accessory muscles. ABDOMEN: Soft, nontender and nondistended. Normal bowel sounds present. EXTREMITIES: No cyanosis or clubbing. No edema. No signs of chronic venous insufficiency. ROLL WINDER: Patient is alert oriented ?3. No focl neurological deficits. SKIN: Normal turgor and temperature. No breakdown, or nail changes noted. Chronic skin discoloration in extremities PSYCH: Normal insight and judgment. Data Other Data: Attestation for Other Data: I personally reviewed and interpreted the following: Other data: EKG showed typical atrial flutter with rapid ventricle response with 2 is to [address]-T wave abnormality Follow-up EKG with atrial flutter with heart rate at 77 bpm with variable conduction. Nonspecific ST-T wave changes. Transthoracic echocardiogram 02 May 2019 CONCLUSIONS Normal left ventricular size, systolic function and wall thickness, with no regional wall motion abnormalities. Normal diastolic function. Left ventricular ejection fraction is estimated at 55-60 %. Structurally normal mitral valve. Mild mitral valve regurgitation. No change from the last echo dated 2013. A&P Assessment and plan (1) Atrial flutter with rapid ventricular response: Compliant with NOAC and has not missed any dose. -I will proceed with CV today as patient has remained NPO since 10:30 am. -Amipodarone 400 mg POx 1 and continue amiodarone gtt overnight and transition to amiodarone 200 mg PO BID in am. -continue Xarelto. -f/u on echo. Status: Acute (2) Hypertension: Status: Acute (3) Dyslipidemia: Status: Acute (4) Seropositive rheumatoid arthritis of multiple sites: Status: Acute Additional A&P Information History of abdominal aortic aneurysm (stable 3.32 x 3.39 cm fusiform aneurysmal dilation of infrarenal aorta, by abdominal ultrasound on 17 January 2021) Carotid artery stenosis Thank you for allowing me to participate in patient's care. Please feel free to call with questions or concerns. Consult Attestations Medical Necessity Statement: Needs hospital stay for management for A. flutter with RVR Time Spent in Patient Care: Greater than 35 minutes (>than 50% of time spent in counselling and/or direct pt care on unit) . Critical Care Time: The high probability of a clinically significant, sudden or life threatening deterioration of the patient's [] system(s) required my full and direct attention, intervention and personal management. The critical care time is as shown. This time is in addition to time spent performing any reported procedures but includes the following: [x] Data and vital sign review and interpretation [x] Patient assessment, examination and intervention [x] Documentation [x] Medication orders and management Critical Care Time (min): 40 Procedures Time out/Consent Time Out Performed: Yes Consent for Procedure: Consent obtained from patient, Risks & Benefits reviewed and Agrees to proceed with procedure Procedure Narrative Cardioversion procedure note. Indication: Symptomatic atrial flutter Anticoagulation: Xarelto Sedation: conscious sedation Procedure was explained to the patient in detail. Risks and benefits of the procedures were discussed. Informed consent was obtained. After time out was called patient received sedation with versed 4 mg and fentanyl 75 mcg IV. Pads were placed anteroposteriorly. He received 150 J of synchronized biphasic shock ?1 with jewish of normal sinus rhythm. Patient tolerated the procedure well. Recovery: in unit Coding Level of Care Code Acute Resident Inspector for [facility] Diagnoses Atrial flutter with rapid ventricular response I48.92 Hypertension I10 Dyslipidemia E78.5 Seropositive rheumatoid arthritis of multiple sites M05.79
[2021-02-01 17:09] LABS: Magnesium 2.4 mg/dL (1.7-2.3); Thyroid Stimulating Hormone 1.05 uIU/mL (0.27-4.20)
[2021-02-01] MEDS: amiodarone 200 mg Tablet 400 MG PO (17:50)
[2021-02-01] MEDS: rivaroxaban 10 mg Tablet 20 MG PO (17:50)
[2021-02-01] MEDS: atorvastatin 40 mg Tablet 20 MG PO (17:51)
[2021-02-01] MEDS: tamsulosin 0.4 mg Capsule 0.8 MG PO (17:52)
[2021-02-01] MEDS: famotidine 20 mg Tablet PO (17:52)
--- NOTE | 2021-02-01 18:30 | PC.NURSE ---
Versed 4 mg given and 100 mg Fentanyl given IV. Pt was sync. cardioverted with 150 one time and went into SR. EKG done.
--- NOTE | 2021-02-01 18:32 | ECG_ITS ---
[facility] Test Date: 2021-02-01 Pat Name: Patrick Mendes Department: Room: [facility] Gender: Male Institute Director: : 1950 Requested By: Kierra Coello Order Number: [id number] Laila MD: Kierra Coello M.D. Measurements Intervals [place] Rate: 77 P: 57 TX: 142 QRS: 24 QRSD: 90 T: 78 QT: 347 QTc: 393 Interpretive Statements SINUS RHYTHM POSSIBLE LEFT ATRIAL ENLARGEMENT [-0.1mV P WAVE IN V1/V2] WARNING: DATA QUALITY MAY AFFECT INTERPRETATION Compared to ECG 02/01/2021 15:43:13 Atrial flutter no longer present Incomplete right bundle-branch block no longer present T-wave abnormality no longer present Possible ischemia no longer present Electronically Signed On 02-02-2021 21:18:09 CDT by Kierra Coello M.D. [id number] f
[2021-02-01] MEDS: midazolam 1 mg/mL INJ 2 mL 6 MG IVP (19:19)
[2021-02-01] MEDS: fentaNYL 50 mcg/mL INJ 2mL 150 MCG IVP (19:21)
[2021-02-01] MEDS: ropinirole 1 mg Tablet PO (20:42)
[2021-02-01] MEDS: amitriptyline 25 mg Tablet PO (20:42)
[2021-02-01 21:04] LABS: Troponin 5 6HR 21.72 ng/L (0-15)
[2021-02-01 21:06] LABS: Troponin 5 6HR Delta -5.28 ng/L (0-12)
--- NOTE | 2021-02-01 21:25 | PC.NURSE ---
AO x4, no c/o of chest pain or SOB, sinus rhythm at this time. Clarified Clear liquid diet with Dr. Owen which was changed to cardiac diet and approved by t.o. by Dr. Coello when she called to check on patient, Dr. Coello gae t.o. to stop IV Amio once PO dose is started in AM
--- NOTE | 2021-02-01 21:50 | PC.NURSE ---
When Dr. Coello called she advised this nurse to decrease patient from 1 mg/min to 0.5 mg per min per protocol until PO dose is started in AM
--- NOTE | 2021-02-01 21:54 | PC.NURSE ---
Amio decreased from 1 mg/min to 0.5 mg/min per t.o. from Dr. Coello, MEHNAZ shows Amio runnig at 0.5 mg/min since 1441, was running at 1 mg/ml at shift change
[2021-02-02] VITALS (21 sets, daily range): BP systolic 95–161; BP diastolic 62–93; PULSE 55–84; RESP 12–22; O2SAT 89–96
[2021-02-02 03:54] LABS: Basophils # 0.1 10^3/uL (0.0-0.1); Basophils % 0.6 %; Eosinophils # 0.1 10^3/uL (0.0-0.8); Eosinophils % 1.1 %; Hematocrit 39.9 % (42.0-52.0); Hemoglobin 12.8 g/dL (11.7-16.6); Lymphocytes # 1.9 10^3/uL (0.8-4.8); Mean Corpuscular HGB Conc 32.1 g/dL (30.0-36.0); Mean Corpuscular Hemoglobin 29.3 pg (28.0-34.0); Mean Corpuscular Volume 91.3 fL (80-94); Mean Platelet Volume 9.4 fL (7.4-10.4); Monocytes # 0.7 10^3/uL (0.2-0.9); Monocytes % 8.6 %; Neutrophils # 5.43 10^3/uL (1.8-7.7); Neutrophils % 65.7 %; Nucleated Red Blood Cells % 0 %; Platelet Count 257 10^3/cmm (130-400); Red Blood Count 4.37 10^6/uL (4.1-5.3); Red Cell Distribution Width 16.2 % (12.1-15.1); White Blood Count 8.3 10^3/uL (4.0-10.0)
[2021-02-02 04:00] LABS: INR 1.55 (0.8-1.2)
[2021-02-02 04:16] LABS: Alanine Aminotransferase 15 U/L (0-41); Albumin Level 3.2 g/dL (3.5-5.2); Alkaline Phosphatase 52 IU/L (40-130); Anion Gap 10.9 (5-19); Aspartate Amino Transferase 18 U/L (0-40); Blood Urea Nitrogen 15 mg/dL (8-23); Calcium 8.4 mg/dL (8.5-10.5); Carbon Dioxide 26 mmol/L (22-29); Chloride 106 mmol/L (98-107); Creatinine Clr Calc Pharmacy 95.4117; Globulin 2.1 g/dL (1.3-4.6); Glomerular Filtration Rate 95.8 mL/min (90-130); Glucose 113 mg/dL (65-115); Magnesium 2.1 mg/dL (1.7-2.3); Osmolality Calculated 290 mOsm/kg (285-295); Phosphorus 3.4 mg/dL (2.5-4.5); Potassium 3.9 mmol/L (3.5-5.1); Sodium 139 mmol/L (136-145); Total Bilirubin 0.3 mg/dL (0.15-1.2); Total Protein 5.3 g/dL (6.6-8.7)
[2021-02-02 04:22] LABS: NT Pro B Type Natriuretic Pept 379 pg/mL (0-125)
--- NOTE | 2021-02-02 06:00 | USCV_ITS ---
Patrick Mendes Age: 71 Gender: M : 1950 Exam Date: 02/02/2021 06:42 Ordering Phys: Kierra Coello MD ([email or web address]) Technologist: Lynsey Murillo [place] [facility] [place]ication: ATRIAL FLUTTER BP: 124 / 78 HR: 71 Rhythm: Sinus Technical Quality: Suboptimal MEASUREMENTS (Male / Female) Normal Values 2D ECHO LV Diastolic Diameter PLAX 3.6 cm 4.2 - 5.9 / 3.9 - 5.3 cm LV Systolic Diameter PLAX 2.5 cm LV Chamber Size 3.3 cm IVS Diastolic Thickness 1.3 cm 0.6 - 1.0 / 0.6 - 0.9 cm IVS Systolic Thickness 1.6 cm LVPW Diastolic Thickness 2.0 cm 0.6 - 1.0 / 0.6 - 0.9 cm LVPW Systolic Thickness 2.3 cm RV Chamber Size 2.7 cm LVOT Diameter 2.0 cm LV Ejection Fraction 2D Teich 60.0 % LV Ejection Fraction MOD 2C 47.6 % LV Ejection Fraction 2C AL 46.2 % LA Diameter 2.6 cm LA Width 3.7 cm LA Height 4.2 cm RA Width 4.1 cm RA Height 4.0 cm Aorta at Sinotubular Diameter 2.7 cm M-MODE Aortic Annulus Diameter 3.6 cm LA Ao Ratio MM 0.6 MV E Point Septal Separation 1.7 cm DOPPLER AV Peak Velocity 155.0 cm/s LVOT Peak Velocity 104.0 cm/s AV Area Cont Eq vti 2.1 cm squared AV Area Cont Eq pk 2.2 cm squared MV Area PHT 3.6 cm squared Mitral E to A Ratio 1.6 MV E' Velocity 54.0 cm/s Mitral E to MV E' Ratio 8.4 Mitral E to LV E' Lateral Ratio 7.7 Mitral E to LV E' Septal Ratio 9.2 TR Peak Velocity 230.0 cm/s TR Peak Gradient 21.2 mmHg TV Peak E Velocity 66.0 cm/s Right Atrial Pressure 3.0 mmHg Pulmonary Artery Systolic Pressu 24.2 mmHg PV Peak Velocity 66.0 cm/s RV Acceleration Time 0.1 s RV Ejection Time 0.3 s RV AcT/ET 0.5 FINDINGS Left Ventricle Normal left ventricular size and systolic function with no regional wall motion abnormalities. Left ventricular ejection fraction is estimated at 60 %. Normal diastolic function. Right Ventricle Normal right ventricular size and systolic function. Right ventricular systolic pressure 24.2 mmHg. Right Atrium Normal right atrial size. Left Atrium Normal left atrial size. Mitral Valve Structurally normal mitral valve. No mitral valve stenosis. Trace mitral valve regurgitation. Aortic Valve Aortic valve not well visualized. No aortic valve stenosis. No aortic valve regurgitation. Tricuspid Valve Structurally normal tricuspid valve. Pulmonic Valve Pulmonic valve not well visualized. Pericardium No pericardial effusion. Aorta Aorta not well visualized. CONCLUSIONS 1. This is a technically difficult study. Ultrasound enhancing agent was used per protocol. 2. Normal left ventricular size and systolic function with no regional wall motion abnormalities. Left ventricular ejection fraction is estimated at 55-60 %. Normal diastolic function. 3. Normal right ventricular size and systolic function. 4. Pulmonary artery pressure estimated at 24 mm Hg. 5. No significant change when compared to previous echocardiogram dated 05/02/2019. Kierra Coello MD (Electronically Signed) Final Date: 05 February 2021 12:47 S
--- NOTE | 2021-02-02 06:00 | ECG_ITS ---
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 Measurements Intervals [place] Rate: 72 P: 67 ME: 139 QRS: 46 QRSD: 88 T: 80 QT: 375 QTc: 411 Interpretive Statements SINUS RHYTHM WITH SINUS ARRHYTHMIA INTERPRETATION BASED ON A DEFAULT AGE OF 40 YEARS Compared to ECG 02/01/2021 18:33:54 No significant changes Electronically Signed On 02-02-2021 21:16:56 CDT by Kierra Coello M.D. [id number] f
--- NOTE | 2021-02-02 06:40 | PC.NURSE ---
uneventful night, dona cardia noted in the upper 50's while asleep but in the 70's while awake, remains on IV Amio per order, no c/o at this time, supine 45 degrees call light within reach
[2021-02-02] MEDS: perflutren protein-a microsphr 0.22 mg/mL SDV 3 mL IV (07:16)
[2021-02-02] MEDS: oxyCODONE-APAP 5-325 mg Tablet 0.5 TAB PO (07:52)
[2021-02-02] MEDS: lisinopril 20 mg Tablet PO (08:37)
[2021-02-02] MEDS: predniSONE 5 mg Tablet PO (08:37)
[2021-02-02] MEDS: amiodarone 200 mg Tablet PO (08:37)
[2021-02-02] MEDS: duloxetine 30 mg Capsule PO (08:37)
[2021-02-02] MEDS: allopurinol 100 mg Tablet PO (08:37)
[2021-02-02] MEDS: folic acid 1 mg Tablet PO (08:37)
[2021-02-02] MEDS: famotidine 20 mg Tablet PO (08:37)
--- NOTE | 2021-02-02 10:38 | PC.CHAP ---
Pastoral Care Encounter/Spiritual Assessment Type of Contact [] Declined occupational therapy director visit [] Patient/Family/Request visit [] Outpatient visit [] Follow-up visit [] Physician referral [] Code/Alert [x] Routine visit [] Staff referral [] Actively dying [] Patient sleeping [] Family support [] [] Out of room [] Palliative care [] [] Receiving care in room [] Pre-surgical visit [] Trauma [] Long length of stay [x] ICU visit [] Other: Relational/Emotional Strength [] Patient feels connected with others/family/visitors/staff [] Distress [] Loneliness/isolation [] Abandonment Spirituality of Patient [] Person of Bernarda [] Attends Oriental Orthodox of their Bernarda [] Believes in Prayer [] Reads Bible or Zoroastrian materials [] There are Spiritual issues to be addressed Violin Mechanic Interventions [x] Prayer [x] Active listening [x] Non-anxious presence [x] Spiritual/emotional support [] Crisis/trauma care [] Spiritual counseling [] Bereavement support [] Provided bereavement packet [] Provided Bible/devotional materials [] Provided toy/stuffed animal, coloring book to patient or family member [] Provided Communion [] Anointing/[place] [] Salvation [x] Completed spiritual assessment [] Other: Impact on Illness or Injury [] Angry [] Fearful [] Anxious [] Often cries [] Exhaustion [] Unable to work [] Unable to attend voodoo [] Unable to walk/stand [] Unable to read [] Unable to drive [] Unable to eat/drink [] Unable to sleep [] Unable to be with family [] Patient intubated [] Other: Summary patient feeling much stronger...heart rate better... Time spent with patient 10 min
--- NOTE | 2021-02-02 11:25 | PM.DCS ---
Discharge Providers Date of Admission: 02/01/21 14:34 Date of Discharge: February 02, 2021 Attending Provider at Admission: Chase Camara MD Attending Provider at Discharge: Chase Camara MD Primary Care Provider: Meredith Evans MD Diagnoses at Discharge Discharge Diagnosis (1) Atrial flutter with rapid ventricular response: Status: Acute (2) Hypertension: Status: Acute (3) Dyslipidemia: Status: Acute (4) Seropositive rheumatoid arthritis of multiple sites: Status: Acute Reason for Visit Reason for Visit: high heart rate Hospital Course Hospital Course Patrick Mendes is a 71 year old male with a past medical history of atrial fibrillation on Xarelto, history of hypertension, pulmonary hypertension, abdominal aortic aneurysm, COPD, history of smoking, history of prostate cancer treated with radiation therapy in remission, history of restless leg syndrome, history of rheumatoid arthritis, history of gout, who presents to [facility] due to complaints of chest palpitations. Patient was admitted to the [facility] for A. fib with RVR, placed on amiodarone drip, cardiology was consulted, patient received cardioversion, converted back to normal sinus rhythm. Patient was transitioned to p.o. amiodarone 200 mg twice daily for 7 days, followed by 200 mg mg once daily, Cardizem dose has been decreased to 60 mg once daily. Discharged on his home Xarelto, with close follow-up with cardiology as outpatient. Physical Exam Const: COMMON NORMALS: no acute distress and patient oriented x3 HENMT: COMMON NORMALS: normocephalic HEAD & SCALP: normocephalic Neck/C-Spine: COMMON NORMALS: no JVD Resp: COMMON NORMALS: normal respiratory effort, No retractions, No use of accessory muscles and clear to auscultation bilaterally AUSCULTATION: clear to auscultation bilaterally Cardio: COMMON NORMALS: no JVD, regular rate, regular rhythm, S1 normal heart sound present and S2 normal heart sound present RATE: regular rate RHYTHM: regular rhythm HEART SOUNDS: S1 normal heart sound present and S2 normal heart sound present GI: COMMON NORMALS: Normal to inspection, nondistended, normoactive bowel sounds present, Soft to palpation, non-tender, No hepatosplenomegaly present, no masses and no bruits PALPATION: Yes Soft to palpation and Yes No hepatosplenomegaly present Extremity: COMMON NORMALS: capillary refill normal, no clubbing, cyanosis or edema, no calf tenderness and no pedal edema Neuro: COMMON NORMALS: patient oriented x3 Psych: COMMON NORMALS: mental status grossly normal Discharge Data Data Completed and Pending: Completed Studies During Hospitalization Category Date Time Status XR chest 1V luigi ble [id number] Stat Exams 02/01/21 13:38 Completed Pending at discharge Category Date Time Status Complete Blood Co unt w/Auto AM LABS Lab 02/03/21 04:00 Ordered Complete Blood Co unt w/Auto AM LABS Lab 02/04/21 04:00 Ordered Comprehensive Met abolic Panel AM LA BS Lab 02/03/21 04:00 Ordered Comprehensive Met abolic Panel AM LA BS Lab 02/04/21 04:00 Ordered Magnesium AM LABS Lab 02/03/21 04:00 Ordered Magnesium AM LABS Lab 02/04/21 04:00 Ordered NT Pro B Type Geovanna riuretic Pept QAM Lab 02/03/21 06:00 Ordered NT Pro B Type Geovanna riuretic Pept QAM Lab 02/04/21 06:00 Ordered Phosphorus AM LAB S Lab 02/03/21 04:00 Ordered Phosphorus AM LAB S Lab 02/04/21 04:00 Ordered Prothrombin Time INR AM LABS Lab 02/03/21 04:00 Ordered Prothrombin Time INR AM LABS Lab 02/04/21 04:00 Ordered CV echo wo/w cont rast [id number] Routine Ultrasound 02/02/21 06:00 Taken US/CV paperwork R outine Ultrasound 02/02/21 Taken Labs from last 24 hours 02/02/21 02/02/21 02/02/21 03:07 03:07 03:07 WBC RBC Hgb Hct MCV MCH MCHC RDW Plt Count MPV Neut % (Auto) Lymph % (Auto) Chaves % (Auto) Eos % (Auto) Baso % (Auto) Neut # (Auto) Lymph # (Auto) Chaves # (Auto) Eos # (Auto) Baso # (Auto) Nucleated RBC % (a uto) Nucleated RBCs # PT 19.10 H INR 1.55 H Sodium 139 Potassium 3.9 Chloride 106 Carbon Dioxide 26 Anion Gap 10.9 BUN 15 Creatinine 0.8 GFR Calculation 95.8 Glucose 113 Calculated Osmolal ity 290 Calcium 8.4 L Phosphorus 3.4 Magnesium 2.1 Total Bilirubin 0.3 AST 18 ALT 15 Alkaline Phosphata se 52 Troponin T Baselin e Troponin T 120 Min pokagon Delta Troponin T Troponin T Hi Sens 6Hr Troponin T Hi Sens 6Hr Delta NT-Pro-B Natriuret Pep 379 H Total Protein 5.3 L D Albumin 3.2 L Globulin 2.1 TSH 02/02/21 02/01/21 02/01/21 03:07 20:42 20:15 WBC 8.3 RBC 4.37 Hgb 12.8 Hct 39.9 L MCV 91.3 MCH 29.3 MCHC 32.1 RDW 16.2 H Plt Count 257 MPV 9.4 Neut % (Auto) 65.7 Lymph % (Auto) 23.0 Chaves % (Auto) 8.6 Eos % (Auto) 1.1 Baso % (Auto) 0.6 Neut # (Auto) 5.43 Lymph # (Auto) 1.9 Chaves # (Auto) 0.7 Eos # (Auto) 0.1 Baso # (Auto) 0.1 Nucleated RBC % (a uto) 0 Nucleated RBCs # 0.0 PT INR Sodium Potassium Chloride Carbon Dioxide Anion Gap BUN Creatinine GFR Calculation Glucose Calculated Osmolal ity Calcium Phosphorus Magnesium Total Bilirubin AST ALT Alkaline Phosphata se Troponin T Baselin e Troponin T 120 Min pokagon Delta Troponin T Troponin T Hi Sens 6Hr 21.72 H Cancelled Troponin T Hi Sens 6Hr Delta -5.28 L Cancelled NT-Pro-B Natriuret Pep Total Protein Albumin Globulin TSH 02/01/21 02/01/21 02/01/21 15:40 13:38 13:38 WBC RBC Hgb Hct MCV MCH MCHC RDW Plt Count MPV Neut % (Auto) Lymph % (Auto) Chaves % (Auto) Eos % (Auto) Baso % (Auto) Neut # (Auto) Lymph # (Auto) Chaves # (Auto) Eos # (Auto) Baso # (Auto) Nucleated RBC % (a uto) Nucleated RBCs # PT INR Sodium Potassium Chloride Carbon Dioxide Anion Gap BUN Creatinine GFR Calculation Glucose Calculated Osmolal ity Calcium Phosphorus Magnesium 2.4 H 2.3 Total Bilirubin AST ALT Alkaline Phosphata se Troponin T Baselin e Troponin T 120 Min pokagon 22.32 H Delta Troponin T -4.68 L Troponin T Hi Sens 6Hr Troponin T Hi Sens 6Hr Delta NT-Pro-B Natriuret Pep Total Protein Albumin Globulin TSH 1.05 02/01/21 02/01/21 02/01/21 13:38 13:38 13:38 WBC 11.8 H RBC 5.35 H Hgb 15.8 Hct 49.0 MCV 91.6 MCH 29.5 MCHC 32.2 RDW 16.4 H Plt Count 319 MPV 8.9 Neut % (Auto) 80.3 Lymph % (Auto) 12.5 Chaves % (Auto) 4.8 Eos % (Auto) 0.2 Baso % (Auto) 0.6 Neut # (Auto) 9.48 H Lymph # (Auto) 1.5 Chaves # (Auto) 0.6 Eos # (Auto) 0.0 Baso # (Auto) 0.1 Nucleated RBC % (a uto) 0 Nucleated RBCs # 0.0 PT INR Sodium 139 Potassium 4.8 Chloride 102 Carbon Dioxide 26 Anion Gap 15.8 BUN 22 Creatinine 1.1 GFR Calculation 66.4 L Glucose 99 Calculated Osmolal ity 291 Calcium 9.8 Phosphorus Magnesium Total Bilirubin 0.4 AST 25 ALT 22 Alkaline Phosphata se 76 Troponin T Baselin e 27 H Troponin T 120 Min pokagon Delta Troponin T Troponin T Hi Sens 6Hr Troponin T Hi Sens 6Hr Delta NT-Pro-B Natriuret Pep 1287 H Total Protein 7.2 Albumin 4.6 Globulin 2.6 TSH Vitals: Last Vital Signs Temp 98.9 F 02/01/21 13:34 Pulse 56 L 02/02/21 10:52 Resp 17 02/02/21 10:52 BP 112/69 02/02/21 04:30 Pulse Ox 94 02/02/21 10:52 Discharge Plan Discharge Patient Disposition: Home Condition: Stable Prescriptions: New amiodarone [Pacerone] 200 mg Tablet See Rx Instructions .ROUTE .COMPLEX 30 Days Qty: 60 RF: 0 Cardizem LA 120 mg tablet extended release 24 hr 60 mg PO DAILY 30 Days Qty: 30 RF: 0 Continued tamsulosin [Flomax] 0.4 mg capsule 0.8 mg PO QPM RF: 0 Xarelto 20 mg tablet 20 mg PO DAILY@1730 RF: 0 ropinirole 1 mg tablet 1 mg PO BEDTIME RF: 0 melatonin 10 mg capsule 10 mg PO BEDTIME RF: 0 allopurinol 100 mg tablet 100 mg PO DAILY RF: 0 folic acid 1 mg tablet 1 mg PO DAILY Qty: 90 RF: 3 prednisone 5 mg tablet See Rx Instructions PO DAILY Qty: 90 RF: 3 Narcan 4 mg/actuation spray,non-aerosol 4 mg intranasal Q3M PRN (Reason: overdose) RF: 0 tizanidine 2 mg tablet 2 mg PO BID PRN (Reason: muscle spasticity) Qty: 60 RF: 0 duloxetine 30 mg capsule,delayed release(DR/EC) 30 mg PO DAILY RF: 0 potassium gluconate 595 mg (99 mg) tablet 595 mg PO . ON MON,WED,FRI RF: 0 amitriptyline 25 mg tablet 25 mg PO DAILY Qty: 30 RF: 0 lisinopril 20 mg tablet 20 mg PO DAILY Qty: 90 RF: 3 rosuvastatin 10 mg Tablet 5 mg PO QPM RF: 0 lidocaine 5 % Ointment 1 applic topical BID PRN (Reason: unknown) RF: 0 oxycodone-acetaminophen 5-325 mg tablet 0.5 tab PO QID PRN (Reason: pain) RF: 0 methotrexate sodium 2.5 mg tablet 10 mg PO Q7D RF: 0 Discontinued diltiazem HCl 240 mg capsule,extended release 24hr 120 mg PO QAM RF: 0 Discharge Orders: Discharge Order (Routine); Ordered 02/02/21 Ordered By: Chase Camara Referrals: Moiz Carrillo M.D [Physician] - 2 weeks Meredith Evans MD [Primary Care Provider] - Discharge Diet: Cardiac Discharge Activity: Resume usual activity Activity Restrictions/Additional Instructions: -Amiodarone 200 mg twice daily for 7 days, followed by 200 mg daily -Cardizem dose has been reduced to 60 mg daily -If your recurrent chest palpitations please come back to the emergency room Discharge Attestations Time Spent in Discharge Care*: greater than 30 min Quality Metrics Clinical Quality Measures During this hospital stay, did patient experience: None Coding Level of Care Code Acute Chg FW DC note Exam Comprehensive Diagnoses Atrial flutter with rapid ventricular response I48.92 Hypertension I10 Dyslipidemia E78.5 Seropositive rheumatoid arthritis of multiple sites M05.79
--- NOTE | 2021-02-02 13:28 | P.PN_ITS ---
Subjective Subjective: Interval history: Patient is doing well. He is s/p cardioversion yesterday and has stayed in normal sinus rhythm. Vitals/I&O/Wt Last Vital Signs Temp 98.9 F 02/01/21 13:34 Pulse 71 02/02/21 12:00 Resp 20 H 02/02/21 12:00 BP 146/77 02/02/21 12:00 Pulse Ox 91 02/02/21 12:00 02/01/21 02/02/21 02/02/21 22:59 06:59 14:59 Intake Total 112.738 / 215.738 340 / 340 Output Total 500 / 500 1 / 501 800 / 800 Balance -387.262 / -284.262 -1 / -285.262 -460 / -460 Weight last 48 hrs Weight 170 lb Physical Exam Const: COMMON NORMALS: no acute distress and patient oriented x3 HENMT: COMMON NORMALS: normocephalic HEAD & SCALP: normocephalic Neck/C-Spine: COMMON NORMALS: no JVD Resp: COMMON NORMALS: normal respiratory effort, No retractions, No use of accessory muscles and clear to auscultation bilaterally AUSCULTATION: clear to auscultation bilaterally Cardio: COMMON NORMALS: no JVD, regular rate, regular rhythm, S1 normal heart sound present and S2 normal heart sound present RATE: regular rate RHYTHM: regular rhythm HEART SOUNDS: S1 normal heart sound present and S2 normal heart sound present GI: COMMON NORMALS: Normal to inspection, nondistended, normoactive bowel sounds present, Soft to palpation, non-tender, No hepatosplenomegaly present, no masses and no bruits PALPATION: Yes Soft to palpation and Yes No hepatosplenomegaly present Extremity: COMMON NORMALS: capillary refill normal, no clubbing, cyanosis or edema, no calf tenderness and no pedal edema Neuro: COMMON NORMALS: patient oriented x3 Psych: COMMON NORMALS: mental status grossly normal Data : 02/02/21 03:07 02/02/21 03:07 A&P Assessment and plan (1) Atrial flutter with rapid ventricular response: Patient is s/p successful cardioversion yesterday. Stays in normal sinus rhythm Amiodarone 200 mg twice daily for 1 week. Will downtitrate to 200mg daily Decrease the dose of cardizem to 60mg daily Continue Xarelto. Patient is stable to be discharged from cardiology standpoint with outpatient cardiology follow-up. Status: Resolved (2) Hypertension: Status: Acute (3) Dyslipidemia: Status: Acute (4) Seropositive rheumatoid arthritis of multiple sites: Status: Acute Additional A&P Information History of abdominal aortic aneurysm (stable 3.32 x 3.39 cm fusiform aneurysmal dilation of infrarenal aorta, by abdominal ultrasound on 17 January 2021) Carotid artery stenosis Thank you for allowing me to participate in patient's care. Please feel free to call with questions or concerns. Attestations Medical Necessity Statement*: Care expected to cross 2 midnights Coding Level of Care Code Acute Lead Sustainability Specialist for g Fwd Diagnoses Atrial flutter with rapid ventricular response I48.92 Hypertension I10 Dyslipidemia E78.5 Seropositive rheumatoid arthritis of multiple sites M05.79
--- NOTE | 2021-02-03 17:15 | PC.RESP ---
Smoking Cessation information sent to patient.
== END 2021-02-02 15:03 | disposition home or self-care (01) ==
LOC: ER 15:14 → ICU 17:08
PROVIDERS: Admitting Provider Family Medicine; Emergency Provider Emergency Medicine; PCP Family Medicine; Visit Provider Family Medicine
DX: I48.92 Unspecified atrial flutter (principal); I10 Essential (primary) hypertension; E78.5 Hyperlipidemia, unspecified; M05.79 Rheumatoid arthritis with rheumatoid factor of multiple sites without organ or systems involvement; Z79.01 Long term (current) use of anticoagulants; J44.9 Chronic obstructive pulmonary disease, unspecified; Z87.891 Personal history of nicotine dependence; Z85.46 Personal history of malignant neoplasm of prostate; Z92.3 Personal history of irradiation
CPT/HCPCS: 36415; 71045; 80053; 83735; 83880; 84100; 84443; 84484; 85025; 85610; 93005; 94664; 96365; 96375; 99285; C8929; G0378; J0282; J2250; J3010; J7030; J7060; J7512; Q9956

== ENCOUNTER → 2022-03-23 09:03 | Outpatient (BNVA) | payer OTHER, SELFPAY | PROVIDERS: PCP Family Medicine; Visit Provider Internal Medicine | DX: R06.02 Shortness of breath (principal); R00.2 Palpitations; I10 Essential (primary) hypertension; I71.4 Abdominal aortic aneurysm, without rupture; I48.91 Unspecified atrial fibrillation; E78.5 Hyperlipidemia, unspecified; F17.210 Nicotine dependence, cigarettes, uncomplicated | CPT/HCPCS: 99214 ==

== ENCOUNTER 2022-04-23 16:19 | Emergency (ER) | payer OTHER, MEDICARE, SELFPAY ==
--- NOTE | 2022-04-23 16:27 | ECG_ITS ---
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 Measurements Intervals [place] Rate: 72 P: 71 MN: 146 QRS: 50 QRSD: 93 T: 79 QT: 368 QTc: 405 Interpretive Statements SINUS RHYTHM Compared to ECG 02/02/2021 05:43:10 Sinus arrhythmia no longer present Electronically Signed On 04-23-2022 17:29:56 CDT by Moiz Carrillo M.D. [email or web address]
--- NOTE | 2022-04-23 16:27 | XRR_ITS ---
PROCEDURE INFORMATION: Exam: XR Chest Exam date and time: 04/23/2022 4:49 PM Age: 72 years old Clinical indication: Cough and dyspnea; Additional info: Dyspnea/cough TECHNIQUE: Imaging protocol: Radiologic exam of the chest. Views: 1 view. COMPARISON: CR XR chest 1V portable [id number] 02/01/2021 1:40 PM FINDINGS: Tubes, catheters and devices: Interval placement of a spinal stimulator with the paddle at the T8 vertebral body level. Lungs: Lungs are clear bilaterally. Pleural spaces: No pleural effusion. No pneumothorax. Heart/Mediastinum: Stable mild enlargement of the cardiac silhouette. Mediastinal contours are unremarkable. Vasculature: Stable vascular calcifications in the aorta. Stable tortuosity of the aorta. Bones/joints: Unremarkable for age. XR/XR chest 1V portable [id number] IMPRESSION: 1. No acute cardiopulmonary process. 2. Interval placement of a spinal stimulator with the paddle at the T8 vertebral body level.
[2022-04-23 16:29] VITALS: BP 130/68; PULSE 81; RESP 16; TEMP 36.6; O2SAT 98; BMI 24.1
[2022-04-23 17:21] VITALS: BP 134/65; PULSE 71; RESP 17; O2SAT 95
[2022-04-23 17:23] LABS: Basophils % 0.3 %; Eosinophils % 0.1 %; Hematocrit 37.5 % (42.0-52.0); Hemoglobin 11.8 g/dL (11.7-16.6); Lymphocytes # 1.5 10^3/uL (0.8-4.8); Lymphocytes % 11.2 %; Mean Corpuscular HGB Conc 31.5 g/dL (30.0-36.0); Mean Corpuscular Hemoglobin 26.6 pg (28.0-34.0); Mean Corpuscular Volume 84.7 fl (80-94); Mean Platelet Volume 9.4 fL (7.4-10.4); Monocytes # 0.7 10^3/uL (0.2-0.9); Monocytes % 5.1 %; Neutrophils # 11.06 10^3/uL (1.8-7.7); Neutrophils % 82.5 %; Nucleated Red Blood Cells % 0 %; Platelet Count 317 10^3/cmm (130-400); Red Blood Count 4.43 10^6/uL (4.1-5.3); Red Cell Distribution Width 17.3 % (12.1-15.1); White Blood Count 13.4 10^3/uL (4.0-10.0)
--- NOTE | 2022-04-23 17:23 | W.ED.SYNCOPE ---
Documented by User: Omid Rivera DO 04/23/22 17:49 HPI - Syncope General: Chief Complaint: Syncope Stated Complaint: Low bp, lightheadedness, blurry vision Time Seen by Provider: 04/23/22 16:27 Source: patient Mode of arrival: ambulatory Limitations: no limitations History of Present Illness: 72-year-old male presents emergency room complaining of a syncopal episode. 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 He is not having any chest pain no vomiting or diarrhea. Patient has a history of atrial fibrillation has not had a rapid rate. He also has a history abdominal aortic aneurysm he is not having any chest or abdominal pain he had no symptoms since this catheter felt very tired and weak he got home to lay down for a while family convinced him he should come to the emergency room. MD complaint: loss of consciousness and collapsed Onset (ago): hour(s) (6-7) Prodromal symptoms: lightheaded Witnessed: No Context: standing up Injuries sustained associated with event: none Associated symptoms: Reports lightheadedness; Deny abdominal pain, chest pain, fever(s), headache(s), nausea, short of breath, vertigo or weakness Treatments prior to arrival: none Review of Systems Const: Denies: fever(s) ENMT: Denies: throat pain, ear or mastoid pain, nasal discharge or nasal congestion Card: Reports: lightheadedness; Denies: chest pain Resp: Denies: dyspnea, productive cough or non-productive cough GI: Denies: abdominal pain or nausea : Denies: flank pain, dysuria, urinary frequency or urinary urgency Skin/Breast: Denies: rash or pruritus Neuro: Denies: headache(s) or vertigo PFS ED PFSH: Medical History (Updated 04/23/22 @ 19:30 by Lora Hoffmann MD) AAA (abdominal aortic aneurysm) Atrial fibrillation Basal cell carcinoma Dyslipidemia High risk medication use High risk medication use Hypertension Immunization counseling Immunization counseling Positive CHANDRAKANT (antinuclear antibody) Prostate cancer Hx of Seropositive rheumatoid arthritis of multiple sites Status post insertion of nerve stimulator Surgical History Hx of prostate biopsy Family History Father CAD (coronary artery disease) Other Cancer Social History Smoking and tobacco status: current every day smoker cigarettes Packs smoked per day: 1 Alcohol intake: former Adopted: No Caregiver/support person: No Lives independently: No Household members: spouse Housing: House Marital status: service: Yes status: Retired branch: [employer] Current occupational status: retired History of recent travel: No Current gender identity: Male Physical Exam Const: GENERAL APPEARANCE: cooperative and comfortable ORIENTATION/CONSCIOUSNESS: Yes awake, Yes oriented to person, Yes oriented to place and Yes oriented to time HENMT: COMMON NORMALS: normocephalic, atraumatic and hearing grossly normal bilaterally HEAD & SCALP: normocephalic and atraumatic Neck/C-Spine: COMMON NORMALS: no JVD Resp: COMMON NORMALS: normal respiratory effort, No retractions, No use of accessory muscles and clear to auscultation bilaterally AUSCULTATION: clear to auscultation bilaterally Cardio: COMMON NORMALS: no JVD, regular rate, regular rhythm and No murmurs present (Cardio) RATE: regular rate RHYTHM: regular rhythm GI: COMMON NORMALS: Soft to palpation and No hepatosplenomegaly present AUSCULTATION: Yes normoactive bowel sounds PALPATION: Yes Soft to palpation, No Tenderness to palpation present (GI), No Guarding due to palpation present (GI) and Yes No hepatosplenomegaly present Extremity: COMMON NORMALS: normal to inspection, capillary refill normal, no clubbing, cyanosis or edema, no calf tenderness and no pedal edema Neuro: SENSORIUM/ORIENTATION: Yes oriented to person, Yes oriented to place and Yes oriented to time Skin: COMMON NORMALS: no rashes or lesions noted GENERAL SKIN EXAM: no rashes or lesions noted Course Vital Signs: Vital signs: Vital Signs Temperature 97.8 F 04/23/22 16:29 Pulse Rate 68 04/23/22 17:45 Respiratory Rate 18 04/23/22 17:45 Blood Pressure 116/61 04/23/22 17:45 Pulse Oximetry 94 04/23/22 17:45 MDM - Syncope Medical Decision Making Care signed out to Dr. Hoffmann at change of shift. See final notes for diagnosis and disposition. Medical Records I reviewed the patient's medical records. Lab Data I reviewed the patient's lab results. : 04/23/22 17:00 04/23/22 17:00 Radiology Impressions Chest X-Ray 04/23/22 16:27 IMPRESSION: 1. No acute cardiopulmonary process. 2. Interval placement of a spinal stimulator with the paddle at the T8 vertebral body level. Laboratory Results WBC 13.4 10^3/uL (4.0-10.0) H 04/23/22 17:00 RBC 4.43 10^6/uL (4.1-5.3) 04/23/22 17:00 Hgb 11.8 g/dL (11.7-16.6) 04/23/22 17:00 Hct 37.5 % (42.0-52.0) L 04/23/22 17:00 MCV 84.7 fl (80-94) 04/23/22 17:00 MCH 26.6 pg (28.0-34.0) L 04/23/22 17:00 MCHC 31.5 g/dL (30.0-36.0) 04/23/22 17:00 RDW 17.3 % (12.1-15.1) H 04/23/22 17:00 Plt Count 317 10^3/cmm (130-400) 04/23/22 17:00 MPV 9.4 fL (7.4-10.4) 04/23/22 17:00 Neut % (Auto) 82.5 % 04/23/22 17:00 Lymph % (Auto) 11.2 % 04/23/22 17:00 [place] % (Auto) 5.1 % 04/23/22 17:00 Eos % (Auto) 0.1 % 04/23/22 17:00 Baso % (Auto) 0.3 % 04/23/22 17:00 Neut # (Auto) 11.06 10^3/uL (1.8-7.7) H 04/23/22 17:00 Lymph # (Auto) 1.5 10^3/uL (0.8-4.8) 04/23/22 17:00 [place] # (Auto) 0.7 10^3/uL (0.2-0.9) 04/23/22 17:00 Eos # (Auto) 0.0 10^3/uL (0.0-0.8) 04/23/22 17:00 Baso # (Auto) 0.0 10^3/uL (0.0-0.1) 04/23/22 17:00 Nucleated RBC % (auto) 0 % 04/23/22 17:00 Nucleated RBCs # 0.0 /100WBC 04/23/22 17:00 Sodium 137 mmol/L (136-145) 04/23/22 17:00 Potassium 4.3 mmol/L (3.5-5.1) 04/23/22 17:00 Chloride 101 mmol/L (98-107) 04/23/22 17:00 Carbon Dioxide 26 mmol/L (22-29) 04/23/22 17:00 Anion Gap 14.3 (5-19) 04/23/22 17:00 BUN 37 mg/dL (8-23) H 04/23/22 17:00 Creatinine 1.6 mg/dL (0.7-1.2) H 04/23/22 17:00 GFR Calculation 42.9 mL/min (90-130) L 04/23/22 17:00 Glucose 153 mg/dL (65-115) H 04/23/22 17:00 Calculated Osmolality 296 mOsm/kg (285-295) H 04/23/22 17:00 Calcium 9.2 mg/dL (8.5-10.5) 04/23/22 17:00 Total Bilirubin 0.4 mg/dL (0.15-1.2) 04/23/22 17:00 AST 17 U/L (0-40) 04/23/22 17:00 ALT 14 U/L (0-41) 04/23/22 17:00 Alkaline Phosphatase 70 IU/L (40-130) 04/23/22 17:00 Troponin T Baseline 8 ng/L (0-15) 04/23/22 17:00 Troponin T 120 Minute 8.89 ng/L (0-15) 04/23/22 18:46 Delta Troponin T 0.89 ABS# (0-10) 04/23/22 18:46 Total Protein 7.4 g/dL (6.6-8.7) 04/23/22 17:00 Albumin 4.2 g/dL (3.5-5.2) 04/23/22 17:00 Globulin 3.2 g/dL (1.3-4.6) 04/23/22 17:00 Urine Color Yellow (Yellow) 04/23/22 17:10 Urine Appearance Clear (CLEAR) 04/23/22 17:10 Urine pH 5 (5-7) 04/23/22 17:10 Ur Specific [place] 1.020 (1.005-1.030) 04/23/22 17:10 Urine Protein Neg (Negative) 04/23/22 17:10 Urine Glucose (UA) Norm (Normal) 04/23/22 17:10 Urine Ketones Negative (Negative) 04/23/22 17:10 Urine Blood 3+ (Negative) H 04/23/22 17:10 Urine Nitrate Negative (Negative) 04/23/22 17:10 Urine Bilirubin Neg (Negative) 04/23/22 17:10 Urine Urobilinogen Norm mg/dL (Negative) 04/23/22 17:10 Ur Leukocyte Esterase Negative (Negative) 04/23/22 17:10 Urine RBC 0-4 /hpf (0-2) H 04/23/22 17:10 Urine WBC 0-4 /hpf (0-5) H 04/23/22 17:10 Ur Squamous Epith Cells 0-4 /hpf (0-5) H 04/23/22 17:10 Amorphous Sediment Not Reportable 04/23/22 17:10 Urine Bacteria Trace /hpf (NONE) 04/23/22 17:10 Hyaline Casts 0-4 /lpf H 04/23/22 17:10 Urine Mucus 1+ /hpf 04/23/22 17:10 Discharge Plan Discharge Patient Disposition: Home Clinical Impression: Syncope Qualifiers: Syncope type: unspecified Qualified Code(s): R55 - Syncope and collapse Condition: Stable Prescriptions: No Action Xarelto 20 mg tablet 20 mg PO DAILY@1730 0RF ropinirole 1 mg tablet 1 mg PO BEDTIME 0RF melatonin 10 mg capsule 10 mg PO BEDTIME 0RF allopurinol 100 mg tablet 100 mg PO DAILY 0RF folic acid 1 mg tablet 1 mg PO DAILY Qty: 90 3RF prednisone 5 mg tablet See Rx Instructions PO DAILY Qty: 90 3RF Rx Instructions: start with 15 mg daily then taper dose by 2.5mg increments every 5-7 days as symptoms improve. once reach 5mg daily stay there Narcan 4 mg/actuation spray,non-aerosol 4 mg intranasal Q3M PRN (Reason: overdose) 0RF Rx Instructions: spray 1 dose into ONE nostril; alternate nostrils w each dose until help arrives duloxetine 30 mg capsule,delayed release(DR/EC) 30 mg PO DAILY 0RF potassium gluconate 595 mg (99 mg) tablet 595 mg PO . ON MON,WED,FRI 0RF tamsulosin [Flomax] 0.4 mg capsule 0.4 mg PO QPM 0RF amiodarone 200 mg tablet 200 mg PO DAILY 0RF cyclobenzaprine 5 mg tablet 5 mg PO TID PRN0RF lisinopril 40 mg tablet 40 mg PO DAILY Qty: 90 3RF amlodipine 10 mg tablet 10 mg PO DAILY Qty: 90 3RF rosuvastatin 10 mg Tablet 5 mg PO QPM 0RF lidocaine 5 % Ointment 1 applic topical BID PRN (Reason: unknown) 0RF oxycodone-acetaminophen 5-325 mg tablet 0.5 tab PO QID PRN (Reason: pain) 0RF Discharge Orders: Discharge ED (Routine); Ordered 04/23/22 Ordered By: Lora Hoffmann Referrals: Meredith Evans MD [Primary Care Provider] - 1-3 days Discharge Diet: Advance as tolerated Discharge Activity: Resume usual activity Patient Instructions: Syncope (ED) Coding Level of Care Code ED Call Center Operator for Chg Fwd Exam Comprehensive Documented by User: Lora Hoffmann MD 04/23/22 19:43 HPI - Syncope General: Chief Complaint: Syncope Stated Complaint: Low bp, lightheadedness, blurry vision Time Seen by Provider: 04/23/22 16:27 [facility] ED PFSH: Medical History (Updated 04/23/22 @ 19:30 by Lora Hoffmann MD) AAA (abdominal aortic aneurysm) Atrial fibrillation Basal cell carcinoma Dyslipidemia High risk medication use High risk medication use Hypertension Immunization counseling Immunization counseling Positive CHANDRAKANT (antinuclear antibody) Prostate cancer Hx of Seropositive rheumatoid arthritis of multiple sites Status post insertion of nerve stimulator Surgical History Hx of prostate biopsy Family History Father CAD (coronary artery disease) Other Cancer Social History Smoking and tobacco status: current every day smoker cigarettes Packs smoked per day: 1 Alcohol intake: former Adopted: No Caregiver/support person: No Lives independently: No Household members: spouse Housing: House Marital status: service: Yes status: Retired branch: [employer] Current occupational status: retired History of recent travel: No Current gender identity: Male Course Vital Signs: Vital signs: Vital Signs Temperature 97.8 F 04/23/22 16:29 Pulse Rate 68 04/23/22 17:45 Respiratory Rate 18 04/23/22 17:45 Blood Pressure 116/61 04/23/22 17:45 Pulse Oximetry 94 04/23/22 17:45 MDM - Syncope Medical Decision Making Care signed out to Dr. Hoffmann at change of shift. See final notes for diagnosis and disposition. Patient presents with a syncopal event patient likely got a little dehydrated from working outside. He feels much improved here after IV fluids blood work is normal. His blood pressures here been normal he has had no chest pain he is stable for discharge he is to follow-up with PCP in 3 to 5 days and return if worsening he understands agrees to plan. Lab Data : 04/23/22 17:00 04/23/22 17:00 Radiology Impressions Chest X-Ray 04/23/22 16:27 IMPRESSION: 1. No acute cardiopulmonary process. 2. Interval placement of a spinal stimulator with the paddle at the T8 vertebral body level. Laboratory Results WBC 13.4 10^3/uL (4.0-10.0) H 04/23/22 17:00 RBC 4.43 10^6/uL (4.1-5.3) 04/23/22 17:00 Hgb 11.8 g/dL (11.7-16.6) 04/23/22 17:00 Hct 37.5 % (42.0-52.0) L 04/23/22 17:00 MCV 84.7 fl (80-94) 04/23/22 17:00 MCH 26.6 pg (28.0-34.0) L 04/23/22 17:00 MCHC 31.5 g/dL (30.0-36.0) 04/23/22 17:00 RDW 17.3 % (12.1-15.1) H 04/23/22 17:00 Plt Count 317 10^3/cmm (130-400) 04/23/22 17:00 MPV 9.4 fL (7.4-10.4) 04/23/22 17:00 Neut % (Auto) 82.5 % 04/23/22 17:00 Lymph % (Auto) 11.2 % 04/23/22 17:00 [place] % (Auto) 5.1 % 04/23/22 17:00 Eos % (Auto) 0.1 % 04/23/22 17:00 Baso % (Auto) 0.3 % 04/23/22 17:00 Neut # (Auto) 11.06 10^3/uL (1.8-7.7) H 04/23/22 17:00 Lymph # (Auto) 1.5 10^3/uL (0.8-4.8) 04/23/22 17:00 [place] # (Auto) 0.7 10^3/uL (0.2-0.9) 04/23/22 17:00 Eos # (Auto) 0.0 10^3/uL (0.0-0.8) 04/23/22 17:00 Baso # (Auto) 0.0 10^3/uL (0.0-0.1) 04/23/22 17:00 Nucleated RBC % (auto) 0 % 04/23/22 17:00 Nucleated RBCs # 0.0 /100WBC 04/23/22 17:00 Sodium 137 mmol/L (136-145) 04/23/22 17:00 Potassium 4.3 mmol/L (3.5-5.1) 04/23/22 17:00 Chloride 101 mmol/L (98-107) 04/23/22 17:00 Carbon Dioxide 26 mmol/L (22-29) 04/23/22 17:00 Anion Gap 14.3 (5-19) 04/23/22 17:00 BUN 37 mg/dL (8-23) H 04/23/22 17:00 Creatinine 1.6 mg/dL (0.7-1.2) H 04/23/22 17:00 GFR Calculation 42.9 mL/min (90-130) L 04/23/22 17:00 Glucose 153 mg/dL (65-115) H 04/23/22 17:00 Calculated Osmolality 296 mOsm/kg (285-295) H 04/23/22 17:00 Calcium 9.2 mg/dL (8.5-10.5) 04/23/22 17:00 Total Bilirubin 0.4 mg/dL (0.15-1.2) 04/23/22 17:00 AST 17 U/L (0-40) 04/23/22 17:00 ALT 14 U/L (0-41) 04/23/22 17:00 Alkaline Phosphatase 70 IU/L (40-130) 04/23/22 17:00 Troponin T Baseline 8 ng/L (0-15) 04/23/22 17:00 Troponin T 120 Minute 8.89 ng/L (0-15) 04/23/22 18:46 Delta Troponin T 0.89 ABS# (0-10) 04/23/22 18:46 Total Protein 7.4 g/dL (6.6-8.7) 04/23/22 17:00 Albumin 4.2 g/dL (3.5-5.2) 04/23/22 17:00 Globulin 3.2 g/dL (1.3-4.6) 04/23/22 17:00 Urine Color Yellow (Yellow) 04/23/22 17:10 Urine Appearance Clear (CLEAR) 04/23/22 17:10 Urine pH 5 (5-7) 04/23/22 17:10 Ur Specific [place] 1.020 (1.005-1.030) 04/23/22 17:10 Urine Protein Neg (Negative) 04/23/22 17:10 Urine Glucose (UA) Norm (Normal) 04/23/22 17:10 Urine Ketones Negative (Negative) 04/23/22 17:10 Urine Blood 3+ (Negative) H 04/23/22 17:10 Urine Nitrate Negative (Negative) 04/23/22 17:10 Urine Bilirubin Neg (Negative) 04/23/22 17:10 Urine Urobilinogen Norm mg/dL (Negative) 04/23/22 17:10 Ur Leukocyte Esterase Negative (Negative) 04/23/22 17:10 Urine RBC 0-4 /hpf (0-2) H 04/23/22 17:10 Urine WBC 0-4 /hpf (0-5) H 04/23/22 17:10 Ur Squamous Epith Cells 0-4 /hpf (0-5) H 04/23/22 17:10 Amorphous Sediment Not Reportable 04/23/22 17:10 Urine Bacteria Trace /hpf (NONE) 04/23/22 17:10 Hyaline Casts 0-4 /lpf H 04/23/22 17:10 Urine Mucus 1+ /hpf 04/23/22 17:10 EKG Data EKG 2: I personally reviewed and interpreted this EKG as follows: EKG interpretation date: 04/23/22 EKG interpretation time: 18:26 Interpretation: nsr hr [address] or t wave abnormalities qrs 93 qtc 383 Discharge Plan Discharge Patient Disposition: Home Clinical Impression: Syncope Qualifiers: Syncope type: unspecified Qualified Code(s): R55 - Syncope and collapse Condition: Stable Prescriptions: No Action Xarelto 20 mg tablet 20 mg PO DAILY@1730 0RF ropinirole 1 mg tablet 1 mg PO BEDTIME 0RF melatonin 10 mg capsule 10 mg PO BEDTIME 0RF allopurinol 100 mg tablet 100 mg PO DAILY 0RF folic acid 1 mg tablet 1 mg PO DAILY Qty: 90 3RF prednisone 5 mg tablet See Rx Instructions PO DAILY Qty: 90 3RF Rx Instructions: start with 15 mg daily then taper dose by 2.5mg increments every 5-7 days as symptoms improve. once reach 5mg daily stay there Narcan 4 mg/actuation spray,non-aerosol 4 mg intranasal Q3M PRN (Reason: overdose) 0RF Rx Instructions: spray 1 dose into ONE nostril; alternate nostrils w each dose until help arrives duloxetine 30 mg capsule,delayed release(DR/EC) 30 mg PO DAILY 0RF potassium gluconate 595 mg (99 mg) tablet 595 mg PO . ON MON,WED,FRI 0RF tamsulosin [Flomax] 0.4 mg capsule 0.4 mg PO QPM 0RF amiodarone 200 mg tablet 200 mg PO DAILY 0RF cyclobenzaprine 5 mg tablet 5 mg PO TID PRN0RF lisinopril 40 mg tablet 40 mg PO DAILY Qty: 90 3RF amlodipine 10 mg tablet 10 mg PO DAILY Qty: 90 3RF rosuvastatin 10 mg Tablet 5 mg PO QPM 0RF lidocaine 5 % Ointment 1 applic topical BID PRN (Reason: unknown) 0RF oxycodone-acetaminophen 5-325 mg tablet 0.5 tab PO QID PRN (Reason: pain) 0RF Discharge Orders: Discharge ED (Routine); Ordered 04/23/22 Ordered By: Lora Hoffmann Referrals: Meredith Evans MD [Primary Care Provider] - 1-3 days Discharge Diet: Advance as tolerated Discharge Activity: Resume usual activity Patient Instructions: Syncope (ED) Coding Level of Care Code ED Call Center Operator for Chg Fwd Exam Comprehensive
[2022-04-23 17:43] LABS: Alanine Aminotransferase 14 U/L (0-41); Albumin Level 4.2 g/dL (3.5-5.2); Alkaline Phosphatase 70 IU/L (40-130); Anion Gap 14.3 (5-19); Aspartate Amino Transferase 17 U/L (0-40); Blood Urea Nitrogen 37 mg/dL (8-23); Calcium 9.2 mg/dL (8.5-10.5); Carbon Dioxide 26 mmol/L (22-29); Chloride 101 mmol/L (98-107); Globulin 3.2 g/dL (1.3-4.6); Glomerular Filtration Rate 42.9 mL/min (90-130); Glucose 153 mg/dL (65-115); Osmolality Calculated 296 mOsm/kg (285-295); Potassium 4.3 mmol/L (3.5-5.1); Sodium 137 mmol/L (136-145); Total Bilirubin 0.4 mg/dL (0.15-1.2); Total Protein 7.4 g/dL (6.6-8.7); Troponin(5th) Baseline 8 ng/L (0-15)
[2022-04-23 17:45] VITALS: BP 116/61; PULSE 68; RESP 18; O2SAT 94
[2022-04-23] MEDS: sodium chloride 0.9% 1,000 ML 999 ML IV (18:04)
--- NOTE | 2022-04-23 18:27 | ECG_ITS ---
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 Measurements Intervals [place] Rate: 69 P: 67 [place]: 147 QRS: 47 QRSD: 93 T: 75 QT: 364 QTc: 391 Interpretive Statements SINUS RHYTHM Compared to ECG 04/23/2022 16:48:38 No significant changes Electronically Signed On 04-23-2022 18:29:58 CDT by Moiz Carrillo M.D. [id number]
[2022-04-23 18:44] LABS: Add Urine Microscopic? YES; Bilirubin Urine Neg (Negative); Blood Urine 3+ (Negative); Glucose Urine UA Norm (Normal); Ketones Urine Negative (Negative); Leukocyte Esterase Urine Negative (Negative); Nitrate Urine Negative (Negative); Protein Urine Neg (Negative); Urine Appearance Clear (CLEAR); Urine Color Yellow (Yellow); Urobilinogen Urine Norm (Negative); pH Urine 5 (5-7)
[2022-04-23 18:45] LABS: Add Urine Culture? No; Bacteria Urine TRACE /hpf; Hyaline Casts Urine 0-4 /lpf; Mucus Urine 1+ /hpf; RBC Urine 0-4 /hpf (0-2); Squamous Epithelial Cell Urine 0-4 /hpf (0-5); WBC Urine 0-4 /hpf (0-5)
[2022-04-23 19:15] LABS: Troponin 5 2HR 8.89 ng/L (0-15)
[2022-04-23 19:21] LABS: Troponin 5 2HR Delta 0.89 ABS# (0-10)
[2022-04-23 19:45] VITALS: BP 128/67; PULSE 75; RESP 20; O2SAT 93
[2022-04-23 19:52] VITALS: BP 128/67; PULSE 75; RESP 20; O2SAT 93
== END 2022-04-23 19:58 | disposition home or self-care (01) ==
PROVIDERS: Family Medicine; Emergency Provider Emergency Medicine; PCP Family Medicine
DX: R55 Syncope and collapse (principal); E78.5 Hyperlipidemia, unspecified; I10 Essential (primary) hypertension; Z85.46 Personal history of malignant neoplasm of prostate; F17.210 Nicotine dependence, cigarettes, uncomplicated
CPT/HCPCS: 71045; 80053; 81001; 84484; 85025; 93005; 96360; 99284; J7030

== ENCOUNTER → 2022-04-27 10:00 | Outpatient (BNVA) | payer OTHER, SELFPAY | PROVIDERS: PCP Family Medicine; Visit Provider Internal Medicine | DX: R00.2 Palpitations (principal); I10 Essential (primary) hypertension; I71.4 Abdominal aortic aneurysm, without rupture; E78.5 Hyperlipidemia, unspecified; R06.02 Shortness of breath; F17.210 Nicotine dependence, cigarettes, uncomplicated | CPT/HCPCS: 99214 ==

== ENCOUNTER 2022-05-01 14:00 | Outpatient (CLI) | payer OTHER, SELFPAY ==
--- NOTE | 2022-05-01 14:15 | USCV_ITS ---
Patrick Mendes Age: 72 Gender: M : 1950 Exam Date: 05/01/2022 14:11 Ordering Phys: Moiz Carrillo M.D ([email or web address]) Technologist: Exam Location: [facility] [place] Indication: sob BP: / HR: 67 Rhythm: Sinus Technical Quality: Adequate MEASUREMENTS (Male / Female) Normal Values 2D ECHO LV Diastolic Diameter PLAX 5.2 cm 4.2 - 5.9 / 3.9 - 5.3 cm LV Systolic Diameter PLAX 3.7 cm IVS Diastolic Thickness 1.1 cm 0.6 - 1.0 / 0.6 - 0.9 cm IVS Systolic Thickness 1.3 cm LVPW Diastolic Thickness 1.3 cm 0.6 - 1.0 / 0.6 - 0.9 cm LVPW Systolic Thickness 1.7 cm LVOT Diameter 2.1 cm LV Ejection Fraction 2D Teich 54.2 % LV Ejection Fraction MOD 2C 62.6 % LV Ejection Fraction 2C AL 62.8 % LA Diameter 4.2 cm Aorta at Sinotubular Diameter 2.7 cm IVC Diameter 1.9 cm M-MODE Aortic Annulus Diameter 4.1 cm LA Ao Ratio MM 1.2 DOPPLER AV Peak Velocity 157.0 cm/s LVOT Peak Velocity 106.0 cm/s AV Area Cont Eq vti 2.5 cm squared AV Area Cont Eq pk 2.3 cm squared MV Area PHT 5.0 cm squared Mitral E to A Ratio 1.0 MV E' Velocity 51.5 cm/s Mitral E to MV E' Ratio 7.8 Mitral E to LV E' Lateral Ratio 8.1 Mitral E to LV E' Septal Ratio 7.6 TR Peak Velocity 245.3 cm/s TR Peak Gradient 24.1 mmHg TV Peak E Velocity 95.0 cm/s Right Atrial Pressure 3.0 mmHg Pulmonary Artery Systolic Pressu 27.1 mmHg PV Peak Velocity 135.0 cm/s FINDINGS Left Ventricle Normal left ventricular size. LV systolic function is normal with EF of 55-60%. No regional wall motion abnormalities. Normal diastolic function Right Ventricle The right ventricle is normal in size and function. Right Atrium The right atrium is normal in size. Left Atrium The left atrium is normal in size. Mitral Valve Structurally normal mitral valve without significant stenosis or prolapse. There is no mitral regurgitation. Aortic Valve Structurally normal aortic valve without significant sclerosis or stenosis. There is no aortic regurgitation. Tricuspid Valve Structurally normal tricuspid valve without significant stenosis. Mild tricuspid regurgitation. Pulmonary artery systolic pressure is normal. Pulmonic Valve Not well visualized Pericardium Normal pericardium without effusion. Aorta Not well visualized IVC CONCLUSIONS LV systolic normal with EF 55 to 60%. Diastolic function is normal Mild tricuspid regurgitation. Compared to prior echocardiogram from 02/02/2021, no significant changes are seen Moiz Carrillo MD (Electronically Signed) Final Date: 10 May 2022 11:03 S
== END 2022-05-01 14:01 | disposition home or self-care (01) ==
LOC: RAD 14:01
PROVIDERS: PCP Family Medicine; Visit Provider Internal Medicine
DX: R06.02 Shortness of breath (principal)
CPT/HCPCS: 93306

== ENCOUNTER → 2022-10-12 09:48 | Outpatient (BNVA) | payer OTHER, SELFPAY | PROVIDERS: PCP Family Medicine; Visit Provider Nurse Practitioner Family | DX: I48.91 Unspecified atrial fibrillation (principal); I10 Essential (primary) hypertension; I71.40 Abdominal aortic aneurysm, without rupture, unspecified; F17.210 Nicotine dependence, cigarettes, uncomplicated | CPT/HCPCS: 99214 ==

== ENCOUNTER → 2023-04-16 14:49 | Outpatient (BNVA) | payer OTHER, SELFPAY | PROVIDERS: PCP Family Medicine; Visit Provider Internal Medicine | DX: R00.2 Palpitations (principal); I10 Essential (primary) hypertension; I48.91 Unspecified atrial fibrillation; E78.5 Hyperlipidemia, unspecified; R06.02 Shortness of breath; I71.40 Abdominal aortic aneurysm, without rupture, unspecified; F17.210 Nicotine dependence, cigarettes, uncomplicated | CPT/HCPCS: 99214 ==

== ENCOUNTER 2023-05-01 06:23 | Outpatient (CLI) | payer OTHER, SELFPAY ==
--- NOTE | 2023-05-01 06:15 | USCV_ITS ---
Patrick Mendes Age: 73 Gender: M : 1950 Exam Date: 05/01/2023 06:40 Ordering Phys: Moiz Carrillo M.D ([email or web address]) Technologist: RAMESH Exam Location: [facility] [place] Indication: AAA HISTORY: Diameter (cm) AP x Transverse x Length Velocity (cm/s) Waveform Prox Aorta: 2.27 x 2.36 x 60.30 Mid Aorta: 2.02 x 2.36 x 70.20 Distal Aorta: 3.38 x 3.87 x 5.59 73.50 Right Iliac Prox: 0.99 x 1.90 x 162.00 Left Iliac Prox: 1.27 x 1.96 x 189.30 Stent Prox Landing x x Aneurysmal Sac Max x x Lt Lat Sac Dim Rt Lat Sac Dim Stent Dist Landing x x Right Iliac Stent x x Left Iliac Stent x x Right Renal Art Left Renal Art FINDINGS: CONCLUSIONS Fusiform distal AAA measuring 3.3 x 3.8 x 5.5cm stable since 2020 Ectatic left iliac unchanged Normal Right iliac artery Danny Menezes MD (Electronically Signed) Final Date: 01 May 2023 10:56 S
== END 2023-05-01 06:24 | disposition home or self-care (01) ==
LOC: RAD 06:24
PROVIDERS: PCP Family Medicine; Visit Provider Internal Medicine
DX: I71.40 Abdominal aortic aneurysm, without rupture, unspecified (principal)
CPT/HCPCS: 93978